=== PATIENT | female | born 1980 | race African-American/Black ===

== ENCOUNTER 2018-04-18 18:20 | Emergency (ER) | payer OTHER ==
[~2018-04-18] VITALS: Ht 170.2 cm; Wt 90.7 kg
[~2018-04-18 18:20] MED LIST: AUGMENTIN 875875 MG PO; CIPROFLOXACIN500 M1 PO; HYDROCODONE-APA1 TA1 PO; NOHOMEMEDICATIONS; NORCO 5-325 TA1 EACH PO; ONDANSETRON HCL4 M2 DISSOLVE; XANAX 0.5 MG0.5 MG PO
[2018-04-18] MEDS ORDERED: MOBIC15 MG PO (19:43)
== END 2018-04-18 20:20 | disposition home or self-care (01) ==
LOC: ER 18:20
DX: S86.912A Strain of unspecified muscle(s) and tendon(s) at lower leg level, left leg, initial encounter (principal); M72.2 Plantar fascial fibromatosis; X58.XXXA Exposure to other specified factors, initial encounter; Y93.89 Activity, other specified; Y92.89 Other specified places as the place of occurrence of the external cause; Y99.8 Other external cause status

== ENCOUNTER 2019-03-01 22:37 | Inpatient (IN) | payer OTHER ==
[~2019-03-01] VITALS: Ht 167.6 cm; Wt 93.0 kg
[~2019-03-01 22:37] MED LIST changes: +MOBIC15 MG PO
[2019-03-01 22:45] VITALS: BP 150/101
[2019-03-01] MEDS ORDERED: NEURONTIN 300300 M1 PO (22:54)
[2019-03-01] MEDS ORDERED: TRAMADOL 50 MG50 MG PO (22:54)
[2019-03-02] VITALS (9 sets, daily range): BP systolic 130–147; BP diastolic 68–91
[2019-03-02 01:42] LABS: ABSOLUTE NEUTROPHILS 4.3 thou/uL (1.4-8.2); BASOPHILS 2.2 % (0.0-2.0); HEMATOCRIT 33.8 % (37.0-47.0); HEMOGLOBIN 10.9 gm/dL (12.0-15.0); LYMPHOCYTES 33.6 % (24.0-44.0); MCH 20.6 pg (26.0-34.0); MCHC 32.1 g/dL (28.0-37.0); MCV 64.1 fL (80.0-100.0); MONOCYTES 11.4 % (1.0-8.0); PLATELET COUNT 404 thou/uL (150-400); POLYS 51.8 % (36.0-66.0); RBC 5.27 mil/uL (4.20-5.00); WBC 8.4 thou/uL (4.0-11.0)
[2019-03-02 01:56] LABS: CALCIUM 9.5 mg/dL (8.5-10.1); CREATININE 0.9 mg/dL (0.6-1.0)
[2019-03-02 02:22] LABS: PROTIME 10.9 Seconds (9.3-11.4)
[2019-03-02 02:22] LABS: ANISOCYTOSIS 2+; HYPOCHROMASIA 3+; MICROCYTES 3+
[2019-03-02] MEDS ORDERED: CELEBREX50 MG PO (03:23)
--- NOTE | 2019-03-02 06:41 | NUR ---
PATIENT IS ALERT AND ORIENTED. PATIENT IS SBA. PATIENT HAS COOLNESS TO LT FOOT. PATIENT IS ON ROOM AIR. PATIENT CO OF PAIN THAT COMES IN WAVES. PAIN IMPROVING. PATIENT CAN NOT PUT FULL WEIGHT ON LT FOOT. PATIENT IS ON HEPARIN DRIP 13.6 ML/HR. PATIENT DOSE NOT TAKE CONTROL, OR SMOKE. PATIENT HAS BEEN DEALING WITH PAIN FOR ABOUT A YEAR. PATIENT IS RESTING COMFORTABLY IN BED. WCM. PATIENT IS PROGRESSING TO GOALS.
--- NOTE | 2019-03-02 12:31 | NUR ---
ASSUMED PATIENT CARE AT 0715. A&OX4. COMPLAINTS OF SEVERE PAIN IN THE LEFT FOOT. FAINT PEDAL PULSE FELT. GREAT TOE IS COOL TO TOUCH. DR. GALO AND BRAYAN CONSULTED. ARTERIOGRAM WITH RUNOFF ORDERED. NPO FOR TEST. FLUIDS INFUSING. PAIN MEDS MAKING PATIENT NAUSEOUS, ZOFRAN GIVEN. HEPARIN GTT ON HOLD PER DR. SCHMIDT. ABLE TO MAKE NEEDS KNOWN. WORKING TOWARD GOALS.
--- NOTE | 2019-03-02 21:10 | NUR ---
SPOKE WITH DOCTOR ABOUT PULSE ABSENCE IN LT FOOT. PROVIDER AWARE NO ORDERS CONTINUE WITH PLAN OF CARE. ERNAM.
[2019-03-03] VITALS (9 sets, daily range): BP systolic 127–153; BP diastolic 68–88
[2019-03-03 05:44] LABS: HEMATOCRIT 29.6 % (37.0-47.0); HEMOGLOBIN 9.7 gm/dL (12.0-15.0); MCH 20.7 pg (26.0-34.0); MCHC 32.9 g/dL (28.0-37.0); WBC 8.4 thou/uL (4.0-11.0)
[2019-03-03 05:45] LABS: PLATELET COUNT 295 thou/uL (150-400)
[2019-03-03 06:00] LABS: ALBUMIN 3.1 g/dL (3.4-5.0); CALCIUM 8.6 mg/dL (8.5-10.1); CREATININE 0.8 mg/dL (0.6-1.0); MAGNESIUM 1.8 mg/dL (1.8-2.4); PHOSPHORUS 3.7 mg/dL (2.5-4.9); POTASSIUM 3.8 mmol/L (3.5-5.1)
[2019-03-03 06:32] LABS: ANISOCYTOSIS 2+; HYPOCHROMASIA 3+; MICROCYTES 3+; PLATELET ESTIMATE NORMAL; TARGET CELLS 1+
--- NOTE | 2019-03-03 07:42 | NUR ---
PATIENT IS ALERT AND ORIENTED. PATIENT HAS INTERMIENT PREFUSSION TO LT FOOT. CIRCULATION IS POSITIONAL. PROVIDER IS AWARE. PATIENTS DRESSING TO GROIN IS CLEAN DRY AND INTACT NO HEMOTOMA. PATIENT IS NSR ON TELE. PATIENT PAIN HAS IMPROVED WITH MEDICATION. PATIENT HAS VOIDED SENSE PROCEDURE. PATIENT IS ROOM AIR. PATIENT ON HEPARIN DRIP PER HEPARIN PROTICOL. PATIENT IS RESTNG COMFORTABLY. PENDING POSSIBLE PROCEDURE TODAY TO REPROFUSE THE FOOT. ERNAM.
--- NOTE | 2019-03-03 13:07 | 2DMMODE ---
[facility] [address] [place] [address] 2 D/M-MODE ECHOCARDIOGRAM Name: BENTONShaguftaRAYNEVANE SANDY Room #: 349-I ADM IN M.R.#: [id number] ������������� Admission: 03/02/19 ������������� Attend Phys: Kiet Belle Discharge: ��� ������������� ��� Date of : 76 Date of Service: 03/03/19 1307 �� Report #: [id number] �������� ��������������������������������������������[id number] THIS REPORT FOR: //name// APPROVED REPORT Study performed: 03/03/2019 11:07:54 EXAM: Comprehensive 2D, Doppler, and color-flow Echocardiogram Patient Location: Bedside Room #: 349 Status: routine BSA: 1.99 HR: 75 bpm BP: 150/87 mmHg Rhythm: NSR Other Information Study Quality: Good Risk Factors: Cardiac Risk Factors: Smoking Indications PAD 2D Dimensions IVSd: 10.18 (7-11mm) LVOT Diam: 19.00 (18-24mm) LVDd: 39.74 mm PWd: 9.76 (7-11mm) Ascending Ao: 28.06 (22-36mm) LVDs: 28.91 (25-40mm) Aortic Root: 27.35 mm LV Single Plane 4CH: 62.25 % LV Single Plane 2CH: 62.65 % Biplane EF: 62.3 % Volumes Left Atrial Volume (Systole) Single Plane 4CH: 28.18 mL Single Plane 2CH: 37.93 mL LA ESV Index: 19.00 mL/m2 Aortic Valve AoV Peak Haresh.: 1.57 m/s AO Peak Gr.: 9.87 mmHg LVOT Max P.40 mmHg LVOT Max V: 1.05 m/s CARMELLA Vmax: 1.91 cm2 [facility] [address] [place] [address] 2 D/M-MODE ECHOCARDIOGRAM Name: AL GUILLEN [facility] Room #: 349-I [facility] IN .R.#: [id number] ������������� Admission: 03/02/19 ������������� Attend Phys: Kiet Belle Discharge: ��� ������������� ��� Date of : 76 Date of Service: 03/03/19 1307 �� Report #: [id number] �������� ��������������������������������������������[id number] Mitral Valve E/A Ratio: 1.2 MV Decel. Time: 179.22 ms MV E Max Haresh.: 1.06 m/s MV A Haresh.: 0.90 m/s MV PHT: 51.97 ms IVRT: 62.28 ms TDI E/Lateral E': 10.60 E/Medial E': 15.14 Medial E' Haresh.: 0.07 m/s Lateral E' Haresh.: 0.10 m/s Pulmonary Valve PV Peak Haresh.: 1.34 m/s PV Peak Gr.: 7.23 mmHg [place] End Vmax: 1.10 m/s Pulmonary Vein P Vein S: 0.57 m/s P Vein A: 0.30 m/s P Vein D: 0.40 m/s P Vein A Dur.: 100.3 msec P Vein S/D Ratio: 1.42 Tricuspid Valve TR Peak Haresh.: 2.47 m/s RAP Estimate: 7.00 mmHg TR Peak Gr.: 24.36 mmHg Left Ventricle The left ventricle is normal size. There is normal LV segmental wall motion. There is normal left ventricular wall thickness. Left ventricular systolic function is normal. The left ventricular ejection fraction is within the normal range. LVEF is 60-65%. The left ventricular diastolic function is normal. Right Ventricle The right ventricle is normal size. The right ventricular systolic function is normal. Atria The left atrium size is normal. The right atrium size is normal. Aortic Valve The aortic valve is normal in structure. No aortic regurgitation is present. There is no aortic valvular stenosis. [facility] [address] [place] [address] 2 D/M-MODE ECHOCARDIOGRAM Name: AL GUILLEN SANDY Room #: 349-I ADM IN [facility]#: [id number] ������������� Admission: 03/02/19 ������������� Attend Phys: Kiet Belle Discharge: ��� ������������� ��� Date of : 76 Date of Service: 03/03/19 1307 �� Report #: [id number] �������� ��������������������������������������������[id number] Mitral Valve The mitral valve is normal in structure. There is no mitral valve regurgitation noted. No evidence of mitral valve stenosis. Tricuspid Valve The tricuspid valve is normal in structure. Trace tricuspid regurgitation. Pulmonary artery pressure is 31 mmHg. Pulmonic Valve The pulmonary valve is normal in structure. There is no pulmonic valvular regurgitation. Great Vessels The aortic root is normal in size. IVC is normal in size and collapses >50% with inspiration. Pericardium There is no pericardial effusion. <Conclusion> The left ventricle is normal size. There is normal left ventricular wall thickness. Left ventricular systolic function is normal. The right ventricle is normal size. The left atrium size is normal. The aortic valve is normal in structure. There is no mitral valve regurgitation noted. Trace tricuspid regurgitation. Pulmonary artery pressure is 31 mmHg. ��������������������������������������������� <ELECTRONICALLY SIGNED> ���������������������������������������� By: Rosendo Murillo MD ��������������������������������������������� 03/03/19 1307 1307 1307 Rosendo Murillo MD /INF
--- NOTE | 2019-03-03 15:32 | NUR ---
patient admits with discoloration of left foot and pain. Patient independent with adls and self care. She works [employer]. She has 3 children 2 in their 20s and 10 year. She reports her 10 year old being attended to by older children and her mother. At dc she plans time off work and may need [facility] paperwork completed for time off work to recoup. SHe is to have fem/tib 03/05. Her pcp is Dr Sahara Booker practices in [place]. Casemgt following for dc planning.
--- NOTE | 2019-03-03 15:54 | NUR ---
ASSUMED PATIENT CARE AT 0715. A&OX4. COMPLAINTS OF LEFT FOOT PAIN. LEFT FOOT COOL. UNABLE TO FEEL PULSE. PATIENT ON HEPARIN GTT. DR. GALO PLANNING ON SURGERY FOR Saturday03/05/19. PATIENT LESS ANXIOUS TODAY. FAMILY AT BEDSIDE MOST OF THE DAY. WORKING TOWARDS GOALS.
--- NOTE | 2019-03-03 16:13 | EKG ---
[address] [address] ELECTROCARDIOGRAM REPORT Name: AL GUILLEN Room #: 349-I ADM IN M.R.#: [id number] ������������������ Admission: 03/02/19 ������������������ Attend Phys: Kiet Lyon Discharge: ������������������ Date of : 76 Report #: [id number] ����������������������������������������������������������������� [id number] THIS REPORT FOR: //name// [facility] Test Date: 2019-03-03 Test Time: 15:46:07 Pat Name: AL GUILLEN Department: Room: 349 Gender: F Pathology Tech: Igor HEATON : 1980 Requested By: Drew Adams Order Number: [id number] MD: Gerry Gomez Measurements Intervals [place] Rate: 81 P: 63 DC: 152 QRS: 28 QRSD: 94 T: 6 QT: 368 QTc: 428 Interpretive Statements Sinus rhythm Compared to ECG 12/21/2015 13:55:24 ST (T wave) deviation no longer present Electronically Signed On 03-03-2019 16:13:27 CDT by Gerry Gomez [email or web address] ��������������������������������������������� <ELECTRONICALLY SIGNED> ���������������������������������������� By: Gerry Gomez MD ��������������������������������������������� 03/03/19 1613 1546 1546 Gerry Gomez MD /NORMAN
[2019-03-03 18:00] LABS: URINE BILIRUBIN NEGATIVE (Negative); URINE BLOOD 2+ (Negative); URINE CLARITY CLEAR; URINE COLOR YELLOW; URINE GLUCOSE-RANDOM* NEGATIVE (Negative); URINE KETONES NEGATIVE (Negative); URINE LEUKOCYTES-REFLEX NEGATIVE (Negative); URINE NITRITE-REFLEX NEGATIVE (Negative); URINE PROTEIN (DIPSTICK) NEGATIVE (Negative); URINE SPECIFIC GRAVITY <= 1.005 (1.005-1.035); URINE UROBILINOGEN 0.2 E.U./dl (0.2-1.0)
[2019-03-03 18:15] LABS: BACTERIA-REFLEX None Seen /HPF (None Seen); CASTS None Seen /LPF (None Seen); CRYSTALS None Seen /LPF (None Seen); SQUAMOUS 0-3 Few /LPF (0-3); URINE RBC 3-10 Few /HPF (0-2); URINE WBC-REFLEX None Seen /HPF (0-5)
[2019-03-04 03:50] VITALS: BP 158/87
--- NOTE | 2019-03-04 07:23 | NUR ---
SLEPT PART OF SHIFT. WORKING ON GOALS AND PLAN OF CARE FOR NOC. PAIN MEDICATION GIVEN ORDERED FOR PAIN RELIEF. LEFT FOOT REMAINS WITH THROBBING PAIN BUT LIDOCAINE CREAM DOSE HELP. PROGRESSING TOWARDS GOALS FOR SURGERY TOMORROW. CONTINUE TO ASSES CLOESLY.
[2019-03-04 08:11] VITALS: BP 146/86
[2019-03-04 11:10] VITALS: BP 152/85
[2019-03-04 15:12] VITALS: BP 143/78
--- NOTE | 2019-03-04 15:48 | NUR ---
SW reviewed chart and spoke with nursing and attending physician. Pt to have fem-tib bypass on . Pt remains on heparin gtt. Discharge plan is for pt to return home when medically stable. SARAH is following to assist as needed with discharge planning.
--- NOTE | 2019-03-04 16:47 | NUR ---
ASSUMED PATIENT CARE AT 0715. A&OX4. COMPLAINTS OF LEFT FOOT PAIN. LEFT FOOT PULSELESS AND COOL. SURGERY PLANNED FOR TOMORROW WITH DR. PARK. HEPARIN GTT INFUSING PER PROTOCOL. STAND BY ASSIST. PATIENT WORKING TOWARDS GOALS. SURGERY CONSENT SIGNED ON THE CHART.
[2019-03-04 19:25] VITALS: BP 144/83
[2019-03-05] VITALS (9 sets, daily range): BP systolic 106–138; BP diastolic 61–79
--- NOTE | 2019-03-05 03:48 | NUR ---
ASSUMED CARE OF PT AT 1900. A&Ox4, COOPERATIVE. Fuentes ESTEFANÍA HAS BEEN COOL AND PALE W/ SEVERAL C/O PAIN AND REQUESTS FOR MEDS, PROVIDED. HAS MILD ANXIETY OF SURGERY TOMARROW. CONCERNED ABOUT MENSES. REASSURED STAFF WOULD ASSIST WITH HER CARE. SR ON TELE. HEPARIN DRIP CONTINUED OVER NOC. NPO STARTED AT MIDNIGHT ORDERED. CURRENTLY RESTING. WILL CONTINUE TO PROVIDE CARE AND MONITOR.
[2019-03-05 05:13] LABS: HEMATOCRIT 29.7 % (37.0-47.0); HEMOGLOBIN 9.7 gm/dL (12.0-15.0); MCHC 32.6 g/dL (28.0-37.0); MCV 64.6 fL (80.0-100.0); RBC 4.61 mil/uL (4.20-5.00); RDW 20.5 % (10.5-14.5); WBC 6.8 thou/uL (4.0-11.0)
--- NOTE | 2019-03-05 16:40 | HC ---
[facility] [address] [place] [address] CONSULTATION Name: AL GUILLEN Room #: 240-P ADM IN M.R.#: [id number] Admission: 03/02/19 ������������������ Attend Phys: Kiet Lyon Discharge: ������������������ Date of : 76 Report #: [id number] THIS REPORT FOR: //name// CC: Sahara Lyon DATE OF SERVICE: 03/02/2019 We were asked to see the patient by the hospitalist. HISTORY OF PRESENT ILLNESS: The patient is a 38-year-old admitted during the night with a cold foot. The patient presents with 1 year prodrome of left ankle discomfort, said to be a sprain, but not ever associated with trauma. The patient states that over the last 2-3 weeks, the pain increased in severity and finally led to Emergency Department admission at 10:00 last night. We note that a noninvasive study showed decreased arterial flow throughout the left lower extremity. PAST MEDICAL HISTORY: The patient denies other chronic disease such as diabetes mellitus and hypertension. FAMILY HISTORY: Negative for coagulopathic problems. MEDICATIONS: At home include Celebrex, Neurontin, and tramadol. ALLERGIES: None known. SOCIAL HISTORY: The patient is a former smoker who quit approximately 1 year ago. REVIEW OF SYSTEMS: CONSTITUTIONAL: Denies fever or chills. EYES: Denies vision problems. ENT: Denies runny nose or sore throat. CARDIAC: Denies chest pain or palpitations. RESPIRATORY: Denies shortness of breath. GASTROINTESTINAL: Denies abdominal pain, nausea, vomiting. GENITOURINARY: Denies dysuria or hematuria. MUSCULOSKELETAL: As mentioned, one-year history of "left ankle sprain" unassociated with trauma. SKIN: No rash or infection. NEUROLOGIC: No focal weakness. The patient does have some numbness in the left foot. PSYCHIATRIC: Denies depression or anxiety. [facility] [address] [place] [address] CONSULTATION Name: AL GUILLEN Room #: 240-P [facility] IN [facility]#: [id number] Admission: 03/02/19 ������������������ Attend Phys: Kiet Lyon Discharge: ������������������ Date of : 76 Report #: [id number] PHYSICAL EXAMINATION: VITAL SIGNS: Blood pressure 131/68, heart rate 68, respiratory rate 20, temperature 98.1, O2 sat 99% on room air. GENERAL: The patient is a mildly obese woman, lying in bed. HEENT: Normocephalic. Pupils are round, equal. NECK: No mass, no bruit. CHEST: Clear. CARDIOVASCULAR: Heart rhythm regular. EXTREMITIES: 2+ right popliteal, dorsalis pedis and posterior tibial pulses. No left popliteal, dorsalis pedis or posterior tibial pulses palpable. Left foot has a ruborous appearance and there is nitro paste taped to the left great toe. SKIN: No other rash or infection. There is capillary refill in both feet and both extremities are warm. PSYCHIATRIC: The patient has limited insight into problem, but answers questions appropriately and is oriented. ASSESSMENT: This appears to be an exacerbation of chronic problem. I suspect that the patient had either undiagnosed embolism last year or chronic stenosis that has gone on to thrombose. From the exam, it is likely to be an iliac lesion. The patient needs imaging study and, in fact, all of this may be able to be taken care of in the Invasive Radiology Suite. Combination of angioplasty, stent placement and/or thrombolytics may be sufficient to deal with this. In any event, I have no surgical recommendations until more anatomic information is available. Thank you for the consult. ��������������������������������������������� <ELECTRONICALLY SIGNED> ���������������������������������������� By: Drew Adams MD ��������������������������������������������� 03/05/19 1640 1623 0533 Drew Adams MD /nt
--- NOTE | 2019-03-05 16:40 | O ---
[facility] [address] [place] [address] OPERATIVE REPORT Name: AL GUILLEN Room #: 240-P ADM IN M.R.#: [id number] Admission: 03/02/19 ������������������ Attend Phys: Kiet Lyon Discharge: ������������������ Date of : 76 Report #: [id number] THIS REPORT FOR: //name// CC: Sahara Lyon DATE OF SERVICE: 03/05/2019 PREOPERATIVE DIAGNOSIS: Arterial occlusive disease, left lower extremity. POSTOPERATIVE DIAGNOSIS: Arterial occlusive disease, left lower extremity. OPERATION: Left femoral to posterior tibial bypass with reversed autogenous greater saphenous vein. Intraoperative arteriogram. SURGEON: Drew Adams M.D. SIGN WRITER LETTERER OR PAINTER: AYDEE Jensen. ANESTHESIA: General. INDICATIONS: The patient is a 38-year-old with a 1-year history of left foot pain, only recently was diagnosed to be arterial occlusive disease. Arteriography by Dr. Paris showed a total occlusion of the common femoral artery with collateral flow from a lateral femoral cutaneous branch. The most obvious distal target on the arteriogram was a left posterior tibial artery that filled by collateral flow. FINDINGS AND TECHNIQUE: After general anesthesia was established, an incision was made over the medial calf. The saphenous vein was exposed at this point, and the incision was deepened to expose the posterior tibial artery. An incision was made in the left groin to expose the common femoral artery. The pulse was palpable at the inguinal ligament. The common femoral below the lateral femoral cutaneous collateral was occluded and felt hard. There was inflammatory change around the distal common femoral artery. The greater saphenous vein was harvested through multiple separate incisions and prepared for use as a conduit. 10,000 units of heparin were given. The reverse saphenous vein was sewn in end-to-side fashion to the patent common femoral artery. Flow was established through this, and we made sure that the artery was hemostatic and there were no twists as we brought it through the subcutaneous tunnel. The reversed end was sewn to the side of the posterior tibial artery. [facility] [address] [place] [address] OPERATIVE REPORT Name: BENTONShaguftaAL [facility] Room #: 240-P [facility] IN M.R.#: [id number] Admission: 03/02/19 ������������������ Attend Phys: Kiet Lyon Discharge: ������������������ Date of : 76 Report #: [id number] Flow was established through the bypass graft. An intraoperative arteriogram was taken to make sure that there were no areas of occlusion or twist and that there was good distal runoff. In addition, we gave papaverine topically on the graft and through the graft. Flow was also ascertained with the Doppler. When we were satisfied with the arteriogram, 25 mg of protamine was given. Hemostasis was ascertained. The wounds were closed in layers with nylon and paris for the distal incisions and Vicryl and Monocryl for the groin. The patient was taken to the recovery area in satisfactory condition with good pulse palpable in the graft. All counts were reported as correct. ��������������������������������������������� <ELECTRONICALLY SIGNED> ���������������������������������������� By: Drew Adams MD ��������������������������������������������� 03/05/19 1640 1555 1608 Drew Adams MD /nt
--- NOTE | 2019-03-05 19:18 | NUR ---
PATIENT IN ICU FROM RECOVERY ROOM THIS EVENING, ALERT AND ORIENTED. MEDICATED FOR PAIN WITH PRN MEDS. DRESSING NOTED ON LLE INCISION WITH 3 SHEA VACS. A-LINE RT RADIAL WITH ADEQUATE WAVEFORM. ON CARDENE GTT FOR HTN CONTROL. PATIENT NAUSEATED AND HAD AN EPISODE OF EMESIS AND SCHEDULED ZOFRAN ADMINISTERED. PULSES DOPPLED ON LEFT DORSALIS PEDIS, UNABLE TO DOPPLER POST. TIBIAL DUE TO SHEA DRESSING. DISCOLORATION OF LEFT BIG TOE NOTED BUT FOOT REMAINS WARM. WILL CONTINUE WITH POC.
[2019-03-06] VITALS (23 sets, daily range): BP systolic 102–125; BP diastolic 54–69
[2019-03-06 04:47] LABS: HEMATOCRIT 21.8 % (37.0-47.0); MCH 21.1 pg (26.0-34.0); MCHC 32.9 g/dL (28.0-37.0); MCV 64.2 fL (80.0-100.0); RBC 3.4 mil/uL (4.20-5.00); RDW 19.9 % (10.5-14.5); WBC 11.6 thou/uL (4.0-11.0)
[2019-03-06 04:52] LABS: HEMOGLOBIN 7.2 gm/dL (12.0-15.0)
[2019-03-06 05:08] LABS: ALBUMIN 2.7 g/dL (3.4-5.0); CALCIUM 8.2 mg/dL (8.5-10.1); CREATININE 0.7 mg/dL (0.6-1.0); PHOSPHORUS 3.1 mg/dL (2.5-4.9); POTASSIUM 3.4 mmol/L (3.5-5.1)
--- NOTE | 2019-03-06 06:17 | NUR ---
ASSUMED PATIENT CARE AT 1900. PATIENT LYING IN BED WITH C/O NAUSEA. PATIENT IS ON CARDENE GTT AND HAS AN ARTERIAL LINE. PATIENT AAOX4 AND VERY PLEASANT. PATIENT C/O PAIN IN THE LLE WHERE A TIB-FEM BYPASS WAS DONE EARLIER IN THE DAY. TIBIAL PULSE PRESENT WITH DOPPLER BUT PEDAL PULSE IS ABSENT. PATIENT PROGRESSING TOWARDS GOAL.
--- NOTE | 2019-03-06 07:30 | NUR ---
Dr Adams and katie Woodson PA at the bedside with the patient. Speaking to her about the plan of care: Discontinuing the [place]. Requesting pt/ot to get her out of the bed to the chair. Giving her some Iron Iv instead of a transfusion. taking care of her pain. Encouraging her to eat her meals. o8oo Annika dc pressure held for 10mins, able to move her fingers and hand is warm, no hematoma noted. will cont to monitorand work toward the POC.
[2019-03-06 10:00] LABS: HEMOGLOBIN 7.5 gm/dL (12.0-15.0)
[2019-03-06 10:11] LABS: % SATURATION 7 % (20-39); IRON 20 ug/dL (50-170); TIBC 304 ug/dL (250-450)
--- NOTE | 2019-03-06 12:12 | EKG ---
[address] [place] [address] ELECTROCARDIOGRAM REPORT Name: AL GUILLEN Room #: 240-P ADM IN M.R.#: [id number] ������������������ Admission: 03/02/19 ������������������ Attend Phys: Kiet Lyon Discharge: ������������������ Date of : 78 Report #: [id number] ����������������������������������������������������������������� [id number] THIS REPORT FOR: //name// [facility] Test Date: 2019-03-05 Test Time: 19:30:21 Pat Name: AL GUILLEN Department: Room: 240 P Gender: F Bakery Clerk: Igor HEATON : 1980 Requested By: Kiet Lyon Order Number: [id number] MD: Nitish Hernández Measurements Intervals [place] Rate: 126 P: 54 [place]: 127 QRS: 37 QRSD: 72 T: 14 QT: 314 QTc: 455 Interpretive Statements Sinus tachycardia Nonspecific T wave abnormality Compared to ECG 03/03/2019 15:46:07 Heart rate has increased T wave abnormality is now present Electronically Signed On 03-06-2019 12:11:45 CDT by Nitish Hernández [email or web address] ��������������������������������������������� <ELECTRONICALLY SIGNED> ���������������������������������������� By: Nitish Hernández MD, [facility] ��������������������������������������������� 03/06/19 1211 29 29 Nitish Hernández MD, [facility] /EPI
--- NOTE | 2019-03-06 20:30 | NUR ---
SHIFT SUMMARY: L FOOT PAIN CONTROLLED WITH HYDROCODONE AND/OR DILAUDID IV. SR/ST, L MEDIAL KNEE AND POSTERIOR TIB PULSES PRESENT PER DOPPLER, L GREAT TOE PALENESS RESOLVING HOWEVER TOE REMAINS MOTTLED. ALL SHEA DRAINS INTACT TO L GROIN/L LEG AND L LEG DRESSING DRY/INTACT WITH SCANT OLD BLOOD. ROOM AIR, LUNGS CLEAR, ZOFRAN GIVEN TO PREVENT NAUSEA/EMESIS, TOLERATING MEALS. PT HAD SIGNIFICANT PAIN IN L GROIN AND L FOOT DESPITE HYDROCODONE & DILAUDID GIVEN SHORTLY BEFORE STANDING AT BEDSIDE. WITH PHYSICAL THERAPY ASSISTANCE PT WAS ONLY ABLE TO STAND AT BEDSIDE AND UNABLE TO WALK. JOEL REMAINED IN PLACE SINCE PT UNABLE TO TOLERATE AMBULATING TO BATHROOM. PARTS DATA WRITER AND DR. GALO AWARE THAT JOEL STILL IN PLACE. PT REQUESTED WARM BLANKET, THEN LATER STATES SHE WAS CHILLY AGAIN. NOTED TEMP 101.3, PT STARTED TAKING DEEP BREATHS X10/THEN COUGH. PERFORMING EVERY FEW MINUTES. TAKING DEEPER BREATHS AND COUGH IMPROVING. CALL PLACED TO DR. GALO- SEE ORDER FOR ANTIBIOTICS. PT GENERALLY PROGRESSING BASED ON PULSES. NOT PROGRESSING RELATED TO L GROIN/L FOOT PAIN ASSOCIATED WITH LACK OF MOBILITY, FEVER AND JOEL STILL IN PLACE.
[2019-03-07] VITALS (13 sets, daily range): BP systolic 104–142; BP diastolic 56–73
[2019-03-07 04:53] LABS: HEMATOCRIT 20.3 % (37.0-47.0); HEMOGLOBIN 6.8 gm/dL (12.0-15.0)
--- NOTE | 2019-03-07 06:23 | NUR ---
No changes observed through the night. VS stable and SpO2 adequate on RA. PRN dilaudid and hydrocodones given for c/o left foot pain with desired effects achieved. Large amount of urine output for shift and no BM observed. Am lab results noted, continue with POC.
--- NOTE | 2019-03-07 14:25 | NUR ---
TRANSFERRED TO CCU #[id number] PER WHEELCHAIR WITH RN ASSIST.
--- NOTE | 2019-03-07 17:01 | NUR ---
PT TRANSFERED TO THE UNIT FROM THE ICU - ORIENTED TO ROOM AND BEDSPACE - ASSESSMENT CHARTED - GIVEN HYDROCODONE FOR PAIN WITH MIN RELIEF PATIENT STATES. JOVANA DIET AND FLUIDS. HAS NOT VOIDED SINCE JOEL REMOVAL - DRESSING REMAIN C/D/I. WILL CONTINUE TO MONITOR.
[2019-03-08 04:00] VITALS: BP 137/85
[2019-03-08 05:01] LABS: HEMATOCRIT 21.3 % (37.0-47.0); HEMOGLOBIN 6.8 gm/dL (12.0-15.0); MCH 20.8 pg (26.0-34.0); MCHC 31.9 g/dL (28.0-37.0); MCV 65.3 fL (80.0-100.0); RBC 3.27 mil/uL (4.20-5.00); RDW 19.7 % (10.5-14.5); WBC 11.4 thou/uL (4.0-11.0)
[2019-03-08 05:30] LABS: CHOLESTEROL 120 mg/dL (<200); HDL CHOLESTEROL 36 mg/dL (>40); LDL CHOLESTEROL 70 mg/dL (<100); TC:HDL 3.3 Ratio (Not establshd); TRIGLYCERIDE 71 mg/dL (<150); VLDL 14 mg/dL (<40)
[2019-03-08 05:36] LABS: SERUM ASSESSMENT N
--- NOTE | 2019-03-08 07:55 | NUR ---
ASSUMED PT CARE AT 1900 WITH NO SIGN OF DISTRESS NOTED, PT IS ALERT AND ORIENTED, FAMOLY AT BEDSIDE. ASSESSMENT COMPLETED AND CHARTED. SCHEDULED MEDS ADMINISTERED TO PT. PAIN MEDS ADMINISTERED TO PT. PT IS STABLE. WOUND DRESSING IN PLACE. NO FURTHER NEEDS AT THIS TIME.
[2019-03-08 08:00] VITALS: BP 126/75
[2019-03-08 08:32] LABS: CALCIUM 8.8 mg/dL (8.5-10.1); CREATININE 0.8 mg/dL (0.6-1.0); MAGNESIUM 1.8 mg/dL (1.8-2.4); POTASSIUM 3.3 mmol/L (3.5-5.1)
[2019-03-08 12:00] VITALS: BP 130/84
--- NOTE | 2019-03-08 12:35 | NUR ---
ASSUMED CARE OF PT AT APPROX 0700. PT IS ALERT AND ORIENTED. MONITORED ON TELE AND ABLE TO MAINTAIN 02 SAT >90 ON RA. PT IS IN TEARS STATING THAT PAIN IN LEFT FOOT IS UNCONTROLLED. TALKED WITH PATIENT ABOUT A GOOD PAIN MANAGEMENT FOR THE DAY AND ADMINISTERED PAIN MEDICATION. PT STATES PARTIAL RELIEF. WILL COTINUE TO TREAT PAIN. PULSES ALL POSITIVE ON LEFT LEG WITH AND WITHOUT DOPPLER. ASSESSMENT CHARTED. PT UPDATED ON POC AND DENIES AND QUESTIONS OR CONCERNS AT THIS TIME. WILL CONTINUE TO MONITOR.
[2019-03-08 15:25] VITALS: BP 131/77
[2019-03-08 19:55] VITALS: BP 133/70
[2019-03-08 23:35] VITALS: BP 118/71
--- NOTE | 2019-03-09 03:34 | NUR ---
ASSUMED CARE 1899. VSS. ASSESSMENT CHARTED. PT C/O LE AND L FOOT PAIN CONTROLED WITH ROTATING PRN PAIN MEDS PER EMAR. PT DENIES SOA, CP, N/V, DIZZINESS OR ANY OTHER CONCERNS. X1 W/WALKER TO COMMOD- ST 110-140 WHEN UP. PT REFUSED INSULIN. PT HBG LOW, STATES SHE DOES NOT WANT A BLOOD TRANSFUSION IS OKAY WITH IRON INFUSION SHE GOT EARLIER IN THE DAY. LE X3 SHEA PUMPS AND DRESSING INTACT WORKING PROPERLY. LEFT PEDAL AND POST TIB PULSE FELT +1. PT REQUESTED HEEL FLOATED WITH PILLOW, MOVES SELF IN BED. PLAN FOR LABS THIS AM. WILL CONTINUE TO MONITOR AND WITH POC.
[2019-03-09 05:11] LABS: HEMATOCRIT 22.1 % (37.0-47.0); HEMOGLOBIN 7.3 gm/dL (12.0-15.0); MCH 21.6 pg (26.0-34.0); MCV 65.5 fL (80.0-100.0); RBC 3.38 mil/uL (4.20-5.00); RDW 19.5 % (10.5-14.5); WBC 9.6 thou/uL (4.0-11.0)
[2019-03-09 05:23] LABS: CALCIUM 8.7 mg/dL (8.5-10.1); CREATININE 0.6 mg/dL (0.6-1.0); MAGNESIUM 1.9 mg/dL (1.8-2.4); POTASSIUM 4.3 mmol/L (3.5-5.1)
[2019-03-09 05:34] VITALS: BP 107/62
[2019-03-09 08:07] VITALS: BP 124/74
[2019-03-09 11:34] LABS: URINE BILIRUBIN NEGATIVE (Negative); URINE BLOOD 3+ (Negative); URINE CLARITY SL CLOUDY; URINE GLUCOSE-RANDOM* NEGATIVE (Negative); URINE KETONES NEGATIVE (Negative); URINE LEUKOCYTES-REFLEX NEGATIVE (Negative); URINE NITRITE-REFLEX NEGATIVE (Negative); URINE PROTEIN (DIPSTICK) NEGATIVE (Negative); URINE UROBILINOGEN 0.2 E.U./dl (0.2-1.0)
[2019-03-09 11:35] LABS: URINE COLOR PINK
--- NOTE | 2019-03-09 11:37 | NUR ---
Nutrition: Pt s/p left femoral to posterior artery bypass. Seen for LOS. Pt very upset at time of assessment, no information obtained. Wt mostly stable x1 week. Pt reported wt upon admission 200 lbs, current 204 lbs. Will remain available for further concerns. Otherwise will assign as low nutrition risk.
[2019-03-09 11:47] LABS: BACTERIA-REFLEX 1-9 Few /HPF (None Seen); CASTS None Seen /LPF (None Seen); CRYSTALS None Seen /LPF (None Seen); SQUAMOUS 0-3 Few /LPF (0-3); URINE RBC >20 Many /HPF (0-2); URINE WBC-REFLEX 0-5 Rare /HPF (0-5)
[2019-03-09 11:50] VITALS: BP 125/73
--- NOTE | 2019-03-09 15:05 | NUR ---
SPOKE WITH PATIENT REGARDING POST ACUTE REHAB. OFFERED OPTIONS INCLUDING 5N [facility] OPTION. PATIENT PREFERS 5N FOR CONTINUITY OF CARE. 5N EVALED AND IN PROCESS OF AUTH. UPDATED PATIENT.
--- NOTE | 2019-03-09 18:40 | NUR ---
VSS REMAINS NSR TO ST 90-110 BASELINE, WITH ANY ACTIVITY TO BSC HR GOES UP TO 140-160. AWARE.L LEG PAIN CONTROL WITH IV DILAUDID AND HYDROCODONE ALTERNATING EVERY 2 HOURS. NEW PAIN MANAGEMENT EXPLAINED TO PT WITH PO PERCOSET. LEFT LEG WITH DOPPLED PULSE. UP TO BSC WITH ASSIST AND TOLERATED WELL. WILL CONTINUE TO MONITER AND CARE FOR PT PER PLAN OF CARE
[2019-03-09 21:03] VITALS: BP 127/69
[2019-03-10 00:05] VITALS: BP 116/58
[2019-03-10 06:00] VITALS: BP 108/62
[2019-03-10 07:45] VITALS: BP 133/77
--- NOTE | 2019-03-10 08:21 | NUR ---
ASSESSMENTS CHARTED. LEFT FOOT CONTINUED TO PAIN THE PATIENT. TRIED AN ICE BAG FOR 10 MINUTES, ELEVATED THE LEG ON PILLOWS. WHICH HELPED THE MOST WITH PAIN BESIDES MEDS. 1ST TOE IS PURPLE AT THE TIP. UP TO BSC USING WALKER AND PARTIAL WEIGHT BEARING. SHEA DRESSINGS ON 3 SITES ON LEFT LEG. DRAINAGE ON BANDAGES UNCHANGED DURING SHIFT. PLAN IS TO CHANGE DRESSINGS, TAKE A SHOWER AND POSSIBLY MOVE TO REHAB UNIT.
[2019-03-10 11:28] VITALS: BP 123/69
[2019-03-10] MEDS ORDERED: FERREX 150 PLU1 EAC1 PO (12:00)
[2019-03-10] MEDS ORDERED: CLOPIDOGREL75 MG PO (12:00)
[2019-03-10] MEDS ORDERED: ATORVASTATIN CA40 MG PO (12:00)
[2019-03-10] MEDS ORDERED: PERCOCET 10-321 EACH PO (12:00)
[2019-03-10] MEDS ORDERED: ASPIR 8181 MG PO (12:00)
[2019-03-10] MEDS ORDERED: LMX TOP (12:00)
[2019-03-10] MEDS ORDERED: CARDIZEM CD120 MG PO (12:00)
[2019-03-10] MEDS ORDERED: ACETAMINOPHEN325 M1 PO (12:00)
[2019-03-10] MEDS ORDERED: MIRALAX17 GM PO (12:00)
== END 2019-03-10 15:10 | DRG 252 ==
LOC: ER 22:37 → EROBS 03-02 01:28 → 3W 03-02 01:28 → ER 03-02 01:28 → 3W 03-02 03:10 → EROBS 03-02 03:10 → 3W 03-02 03:10 → ICU 03-05 11:49 → 2N 03-07 15:30 → ICU 03-07 15:30 → 2N 03-10 10:34 → ICU 03-10 10:34 → 3W 03-10 10:34 → 2N 03-10 12:47
PROVIDERS: Internal Medicine; Nurse Practitioner; Physician Assistant; Student in an Organized Health Care Education/Training Program; Surgery Vascular Surgery; ADMIT Hospitalist
PROC: 06BQ0ZZ Excision of Left Saphenous Vein, Open Approach (ICD-10-PCS; principal; 2019-03-10)
PROC: 041L09N Bypass Left Femoral Artery to Posterior Tibial Artery with Autologous Venous Tissue, Open Approach (ICD-10-PCS; principal; 2019-03-10)
PROC: B41G1ZZ Fluoroscopy of Left Lower Extremity Arteries using Low Osmolar Contrast (ICD-10-PCS; principal; 2019-03-10)
DX: I73.9 Peripheral vascular disease, unspecified (principal); E43 Unspecified severe protein-calorie malnutrition; D62 Acute posthemorrhagic anemia; I77.9 Disorder of arteries and arterioles, unspecified; N93.9 Abnormal uterine and vaginal bleeding, unspecified; E87.6 Hypokalemia; R26.9 Unspecified abnormalities of gait and mobility; Z79.899 Other long term (current) drug therapy; Z87.891 Personal history of nicotine dependence
CPT/HCPCS: 10078; 10081; 10879; 47375; 48888; 50010; 50101; 50386; 50455; 51412; 51481; 51751; 54118; 56524; 56526; 56527; 56528; 56531; 56668; 56682; 56760; 56898; 57092; 57093; 57115; 62110; 62900; 65020; 65040; 70005

== ENCOUNTER 2019-03-10 10:40 | Inpatient (IN) | payer OTHER ==
[~2019-03-10] VITALS: Ht 167.6 cm; Wt 94.3 kg
--- NOTE | ~2019-03-10 | H ---
[facility] Dejon [place] [address] HISTORY AND PHYSICAL Name: AL GUILLEN Room #: PRE IN ..#: [id number] Admission: ������������������ Attend Phys: Odell Mead MD Discharge: ������������������ Date of : 78 Report #: [id number] THIS REPORT FOR: //name// CC: Sahara Mead DATE OF SERVICE: 03/10/2019 HISTORY OF PRESENT ILLNESS: This is a 38-year-old female who presented to the hospital with severe left lower extremity pain and difficulty ambulating for the past 2-3 weeks. She initially had left ankle pain approximately one year ago and was treated by multiple physicians for a left ankle sprain. She even underwent outpatient physical therapy. This admission, she was found to have severe arterial occlusive disease. She was evaluated by Cardiothoracic Surgery and Interventional Radiology. She underwent a left femoral to posterior tibial bypass with reversed autogenous greater saphenous vein and intraoperative arteriogram on 03/05/[address] Adams. Postoperatively, she has had some acute blood loss anemia. She refused blood transfusions, but did agree to iron transfusions for which she has completed a total of 5 bags worth. She has struggled with postop pain control. Medications have been adjusted by primary care. She is on Plavix for further prevention. She has SHEA drain x 3 to the left leg and dressings in place, original surgical dressing still. Today, the patient denies dizziness or headache. She denies numbness or tingling. She denies cough, shortness of air, chest pain. She denies nausea or abdominal pain. She does have some constipation. She denies dysuria. She has left groin down to the foot pain each day, has some slow improvement. She reports some instability of her right ankle. PAST SURGICAL HISTORY: Neck surgery, wisdom teeth removed. SOCIAL HISTORY: The patient is single. She lives in an apartment with her 22-year-old son. She has three other children. She has zero stairs to enter the building or inside the building. She utilized no assistive device prior. 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 She denies any fall in the past. She was independent with ADLs and IADLs. She drives. She is right hand dominant. HABITS: She is a nonsmoker, nondrinker, no illicit drug use. ALLERGIES: No known drug allergies. CURRENT MEDICATIONS: Iron 150 mg daily, Percocet one to two tablets q.6h. p.r.n., Plavix 75 mg daily, MiraLax 17 grams daily, Lipitor 40 mg at bedtime, aspirin 81 mg daily, NovoLog sliding scale a.c. and at bedtime, Zofran 4 mg p.r.n., Tylenol 650 q.6h. p.r.n., Pepcid 20 mg twice a day, Norvasc 5 mg twice a day. [facility] [address] [place] [address] HISTORY AND PHYSICAL Name: AL GUILLEN Room #: PRE IN [facility].#: [id number] Admission: ������������������ Attend Phys: Odell Mead MD Discharge: ������������������ Date of : 78 Report #: [id number] ALLERGIES: No known drug allergies. REVIEW OF SYSTEMS: Remainder of her 14-point review of systems is negative except as listed in HPI. PHYSICAL EXAMINATION: VITAL SIGNS: Blood pressure 123/69, pulse of 101, temperature 98.8, O2 sat 99% on room air. GENERAL: She is awake, alert. She is oriented x 4. She is on room air. She is in no acute distress. HEAD: Normocephalic. EYES: EOMs are intact with no icterus. ENT: No sinus tenderness, no pharyngitis, no rhinorrhea. NECK: No lymphadenopathy. GENERAL: She has regular rate and rhythm. S1, S2 intact. CHEST: Lungs are clear to auscultation bilaterally with no crackle, no wheeze. ABDOMEN: Bowel sounds are positive. She is soft, nontender, nondistended. GENITOURINARY: No CVA tenderness. NEUROLOGIC: Cranial nerves 2-12 grossly intact. Sensation appears intact bilaterally. EXTREMITIES: She has functional range of motion of her bilateral upper extremities, equal manager night strengths bilaterally with no clonus. Upper extremity strength is grossly 4-/5. Lower extremities, she has several dressings starting on the left groin down towards the left ankle. She has a SHEA drain x [address] She has quarter-sized discoloration to her left great toe. She has palpable pedal pulse on the left and right. Left foot is warm. She is able to lift her lower extremity and to gravity bilaterally, right lower extremity with no edema and negative Homans sign. Functional range of motion of the right lower extremity, range of motion limited on the left due to pain. Min to mod assist for sit to stand, dependent for lower body dressing, bathing is min assist. She has not been ambulating due to pain in the left lower extremity and she is limiting her weightbearing due to the pain. SKIN: Otherwise warm, dry and intact. PSYCHIATRIC: Pleasant affect. LABORATORY DATA: From 03/09/2019, WBC is 9.6, hemoglobin 7.3, MCV 65.5, platelets 383. Sodium 141, potassium 4.3, BUN 5, creatinine 0.6, magnesium 1.9. ASSESSMENT: 1. Left lower extremity severe peripheral arterial disease, status post femoral to posterior tibial bypass 03/05/2019, weightbearing as tolerated. 2. Acute blood loss anemia and iron deficiency anemia. 3. Gait instability. 4. Electrolyte abnormalities, resolved. 5. Hypertension. [facility] [address] [place] [address] HISTORY AND PHYSICAL Name: AL GUILLEN Room #: PRE IN M.R.#: [id number] Admission: ������������������ Attend Phys: Odell Mead MD Discharge: ������������������ Date of : 78 Report #: [id number] 6. Hyperlipidemia. 7. Elevated glucose. PLAN: The patient will be admitted to [address] [place] [address] for physical and occupational therapies with the goal to return back to her home as independent as possible. Hospitalist will be consulted to follow for any acute medical issues along with Dr. Adams for surgical and wound care concerns. She will have a neuropsychology testing done while on the unit. She will have a care team meeting next Saturday for discharge planning needs. Social Work Services will be following along as well. She is on aspirin and Plavix for DVT prophylaxis. She is on Pepcid for GI prophylaxis. I will add a stool regimen. We will work on pain control and encouraging mobilization. Also, repeat CBC, BMP in the morning and I will add a hemoglobin A1c for her elevated glucose. Please see extensive orders. ��������������������������������������������� ���������������������������������������� By: ��������������������������������������������� [id number] MARTI Waller /nt
[~2019-03-10 10:40] MED LIST changes: +CELEBREX50 MG PO; +NEURONTIN 300300 M1 PO; +TRAMADOL 50 MG50 MG PO
[2019-03-10] MEDS ORDERED: CARDIZEM CD120 MG PO (12:00)
[2019-03-10] MEDS ORDERED: MIRALAX17 GM PO (12:00)
[2019-03-10] MEDS ORDERED: ACETAMINOPHEN325 M1 PO (12:00)
[2019-03-10] MEDS ORDERED: CLOPIDOGREL75 MG PO (12:00)
[2019-03-10] MEDS ORDERED: ATORVASTATIN CA40 MG PO (12:00)
[2019-03-10] MEDS ORDERED: ASPIR 8181 MG PO (12:00)
[2019-03-10] MEDS ORDERED: FERREX 150 PLU1 EAC1 PO (12:00)
[2019-03-10] MEDS ORDERED: LMX TOP (12:00)
[2019-03-10] MEDS ORDERED: PERCOCET 10-321 EACH PO ×2 (12:00)
--- NOTE | 2019-03-10 15:18 | NUR ---
ASSESSMENT CHARTED - MEDS PER DEC - NO CO'S OF NAUSEA. JOAVNA DIET AND FLUIDS - GIVEN PERCOCET X 2 FOR PAIN WITH MOD RELIEF - UP TO THE CHAIR / BSC - SHOWERED THIS AM BY OCC THERAPY - SHEA DRESSING REMOVED AND THEN REAPPLIED BY PA. PT TRANSFERED WITH [facility] TO REHAB THIS AFTERNOON. LEFT UNIT VIA WHEELCHAIR - NO CO'S AT TIME OF D/C.
[2019-03-10 15:30] VITALS: BP 126/72
--- NOTE | 2019-03-10 18:04 | NUR ---
PT ADMITED TO ROOM 511 FOR LEFT SEVERE PAD, S/P FEMORAL TO TIBIAL BYPASS ON 03/05/19. SECONDARY TO ACUTE BLOOD LOSS/ IRON DEFFIENCY ANEMIA. HGB TODAY IS 7.3. CONTINUE TO BE ON IRON SUPPLEMENT. PT HAD SHOWER AT CCU AND NEW SHEA DRESSINGS ON 3 SITES ON LEFT LEG BEFORE ADMITTED TO REHAB. C/O PAIN 8/10 ON LEFT FOOT. ADMISSION MEDS FAXED TO PHARMACY AND WENT OVER MEDS WITH PT. PERCOCET 2 TABLETS GIVEN BUT LITTLE REFLIEF AFTER 30M, VSS ON RA. TEMP 99.0 C/O COLD ROOM. TEMP AJUSTED. WILL CONTINUE TO MONITOR PAIN AND ANXIETY. ADMISSION REASSESSMENT PER CHART. LAST BM WAS COUPLE DAYS AGO. BS PRESENT BUT HYPOACTIVE. COLACE PRN GIVEN. OFFERED SUPPORTIVE CARE. ENCORUAGED PT TO VOICE HER NEEDS. DISCUSSED ABOUT REHAB SCHEDULED AND ENCOURAGED PT TO REST WELL AT NIGHT. PT SOUNDS RESTLESS WITH PAIN IS NOT UNDERCONTROL. SUGGESTED PT TO TRY TO TAKE ANXIETY MED TO HELP HER REST TONIGHT. CALLED AND NOTIFIED [facility] OBTAINED PRN XANAX FOR ANXIETY AND SLEEP. CONSULT PHYSICIANS CALLED AND NOTIFIED. ENCOURAGED PT TO USE SCD ON RIGHT LEG AND TURN WHILE SHE IS IN BED. WILL GIVE REPORT TO NIGHT NURSE TO CONTINUE TO MONITOR. MOTHER AND CHILDREN AT BEDSIDE. PT SIGNED CONTRACT FOR SAFETY AND ADMISSION CONSENTS. WILL CONTINUE TO MONITOR.
[2019-03-10 19:53] VITALS: BP 117/63
--- NOTE | 2019-03-11 05:02 | NUR ---
Pt. stated she slept well during the night. Medicated for pain x1 this shift with good relief. Left leg incisions x3 with SHEA dressing intact. Up with assist x1 and use of walker to commode. Bed alarm on , calls appropriately. Denies any other concern.
[2019-03-11 06:05] LABS: HEMOGLOBIN 7.8 gm/dL (12.0-15.0); MCH 21.9 pg (26.0-34.0); MCHC 32.5 g/dL (28.0-37.0); MCV 67.6 fL (80.0-100.0); RBC 3.56 mil/uL (4.20-5.00); RDW 20.4 % (10.5-14.5); WBC 10.8 thou/uL (4.0-11.0)
[2019-03-11 06:11] LABS: CALCIUM 9.1 mg/dL (8.5-10.1); CREATININE 0.8 mg/dL (0.6-1.0); POTASSIUM 4.1 mmol/L (3.5-5.1)
[2019-03-11 11:11] LABS: GLYCOHEMOGLOBIN (HGB A1C) 5.1 % (4.8-5.6)
--- NOTE | 2019-03-11 12:23 | NUR ---
chart review. cm visited with pt at bedside, a & o x 3 and able to make her needs know. intro to cm, team meetings and transition of care. she reported " completely independent prior to this, no rehab before"/pt. noted in chart " lives with children ages 10-20 years old. has support from mom and older kids help with younger child. no dme, no hh or rehab in past. 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 will cont following as needed for dc needs.
--- NOTE | 2019-03-11 14:49 | NUR ---
Patient participated in community reintegration on 03/11/19 with Physical Therapy. Refer to documentation by PT.
--- NOTE | 2019-03-11 19:38 | NUR ---
ASSUMED CARE OF PATIENT AT 0715. PATIENT IS A&OX4 AND VITAL SIGNS ARE STABLE. PATEINT HAS REPORTED PAIN THROUGHOUT SHIFT AND HAS BEEN TREATED FOR PAIN WITH MEDICAITONS PER ORDERS. PATIENT PARTICIPATED IN SCHEDULED THERAPIES. SHEA DRESSINS X3 IN PLACE ARE CLEAN, DRY, AND INTACT TO THE LLE. PATIENT TRANSFERS WITH 1 PERSON ASSIST USING GAITBELT AND WALKER. PATIENT TAKES MEDICAITONS WHOLE WITH THIN LIQUIDS. FALL PRECAUTIONS IN PLACE AND NURSING WILL CONTINUE TO MONITOR PATIENT.
[2019-03-11 21:28] VITALS: BP 126/78
--- NOTE | 2019-03-11 23:47 | NUR ---
PT ASSESSMENT COMPLETED AND VSS. MEDS GIVEN ORDERED AND WELL TOLERATED. PRN PAIN MEDICATION HELPFUL FOR L LEG PAIN. SHEA DSGS DRY AND INTACT. SUPPORTIVE SON AT BEDSIDE. PT DENIES NEEDS. RESTING WELL. WILL CONTINUE TO MONITOR FREQUENTLY.
--- NOTE | 2019-03-12 18:28 | NUR ---
ASSUMED CARE OF PATIENT AT 0715. PATIENT IS A&OX4 AND VITAL SIGNS ARE STABLE. PATEINT TRANSFERS AND AMBULATES WTIH 1 PERSON ASSISTANCE USING GAIT BELT AND WALKER. PATIENT TAKES MEDICATIONS WHOLE WITH THIN LIQUIDS. ORDERS OBTAINED BY MANISHA TO REMOVE SHEA DRESSINGS AND PLACE [place] DRESSINGS TO LLE. SURGICAL SITES ARE WELL APPROXIMATED AND STAPELES AND SUTURES ARE IN PLACE. PAIN AND ANXIETY TREATED WITH MEDICAITONS PER ORDERS. PERIPHERAL PULSES IN LOWER EXTREMITIES ARE +1 IN LLE AND +2 IN RLE. PATIENT PARTICIPATED IN SCHEDULED THERAPIES. FALL PRECAUTIONS IN PLACE AND NURSING WILL CONTINUE TO MONITOR.
[2019-03-12 19:15] VITALS: BP 110/61
--- NOTE | 2019-03-12 21:49 | NUR ---
PT ASSESSMENT COMPLETED AND VSS. MEDS GIVEN ORDERED AND WELL TOLERATED. FALL PRECAUTIONS IN PLACE. UP TO THE BATHROOM WITH ASST/GAIT/WALKER. WEAK. PRN PAIN MEDICATION WORKING WELL FOR SURGICAL PAIN. DSGS ON LEFT LEG DRY AND INTACT. PT SLEEPING WELL. WILL CONTINUE TO MONITOR FREQUENTLY.
[2019-03-13 08:11] VITALS: BP 99/66
[2019-03-13 19:35] VITALS: BP 109/56
--- NOTE | 2019-03-13 20:20 | NUR ---
ASSUMED CARE OF PATIENT AT 0715. PATIENT IS A&OX4, VITAL SIGNS ARE STABLE. PATIENT TRANSFERS AND AMBULATES WITH 1 PERSON MINIMUM TO STANDBY ASSISTANCE WITH GAIT BELT AND WALKER. PATIENT REPORTED PAIN AND ANXIETY DURING SHIFT AND WAS TREATED WITH MEDICATIONS PER ORDERS. PARTICIPATED IN SCHEDULED THERAPIES. DRESSINGS TO THE LLE CHANGED THIS SHIFT. SURGICAL SITE IS WELL APPROXIMATED WITH SUTURES AND REDD IN PLACE. DRAINAGE NOTED DURING SHIFT ON THE DRESSINGS TO THE THIGH AND REQUIRED A SECOND DRESSING CHANGE. PATIENT TAKES MEDICAITONS WHOLE WITH THIN LIQUIDS. FALL PRECAUTIONS ARE IN PLACE AND NURSING WILL CONTINUE TO MONITOR PATIENT.
--- NOTE | 2019-03-14 03:28 | NUR ---
APPRECIATES PAIN MEDS AT HS AND HAS BEEN RESTING WELL WITH LEGS ELEVATED. LEFT LEG IS WARM AND HAS PULSES. MULTIPLE DRESSINGS REMAIN DRY. TOE IS MARKED IN ORDER TO BETTER MEASURE ITS PROGRESS HEALING. PLEASANT
[2019-03-14 08:04] VITALS: BP 110/64
[2019-03-14 19:49] VITALS: BP 115/68
--- NOTE | 2019-03-14 20:12 | NUR ---
ASSUMED CARE AT APROX 0715. PATIENT A/O X4. C/O PAIN IN LLE. PAIN MEDS ADMINISTERED PER ORDERS. DRESSINGS CHANGED, REDD INTACT, SUTURES INTACT, INCISIONS WELL APPROXIMATED. SANGUINOUS DRAINAGE NOTED, DRESSING CHANGED X2 THIS SHIFT TO LEFT MID THIGH. PATIENT RUNNING LOW GRADE TEMP OF 99.0, PROVIDER NOTIFIED, PATIENT GIVEN PAIN MED CONTAINING ACETAMINOPHEN, TEMP ON RE-CHECK WAS 98.3. UP X1 PERSON ASSIST, GB AND WALKER, WALKING TO TOILET. PATIENT MENSTRUATING. PATIENT PARTICIPATED IN ALL THERAPY THIS DATE. PAIN MEDS AND ANTI-ANXIETY MEDICATION PROVIDED PRIOR TO DINNER PER PATIENT REQUEST. PATIENT REPORTED PARITAL RELIEF OF PAIN. FALL PRECAUTIONS IN PLACE. RESTING IN BED AT CHANGE OF SHIFT.
--- NOTE | 2019-03-15 04:23 | NUR ---
PATIENT ALERT AND ORIENTED X4. UP WITH ONE ASSIST TO BATHROOM. TEMP 99.4 AT SHIFT CHANGE, GIVEN TYLENOL AND MEDICATED FOR PAIN. RECHECKED TEMP WAS 99.7. PATIENT ENCOURAGED TO DEEP BREATHE AND DRINK FLUIDS IT WAS TOO EARLY FOR MORE MEDICATION. TEMP CHECKED AT 0105 AND WAS 98.2 - PATIENT STATES SHE FEELS BETTER. DRESSING TO UPPER LEFT THIGH CHANGED DUE TO SATURATION. PLACED THICKER DRESSING AND MONITORING. ALSO GIVEN MUSCLE RELAXER PER REQUEST. PLEASANT AND COOPERATIVE WITH CARE. WILL MONITOR.
[2019-03-15 08:00] VITALS: BP 108/66
--- NOTE | 2019-03-15 19:42 | NUR ---
ASSUMED CARE OF PT AT APPROXIMATELY 0715. PATIENT IS A&OX4 AND VITAL SIGNS ARE STABLE. PT TRANSFERS WITH 1 PERSON ASSISTANCE USING GAIT BELT AND WALKER. PATIENT REPORTED PAIN AND WAS TREATED WT MEDICAITONS PER ORDERS. DRESSINGS CHANGED TO LLE WITH MIN SS DRAINAGE TO THIGH DRESSING. PATIENT WAS AFEBRILE DURING SHIFT. FALL PRECAUTIONS IN PLACE AND NURSING WILL CONTINUE TO MONITOR.
[2019-03-15 19:50] VITALS: BP 126/74
--- NOTE | 2019-03-16 02:53 | NUR ---
UP TO TOILET WITH SBA, WALKING VERY GINGERLY ON LEFT FOOT. APPRECIATES HS PAIN MED AND HAS BEEN SLEEPING, LEFT FOOT PULSES 1+, EDEMA. PATIENT TOLERATING TRENDELENBERG TO KEEP FOOT ELEVATED. ALL DRESSINGS DRY AND WERE CHANGED YESTERDAY
[2019-03-16 09:02] VITALS: BP 116/76
[2019-03-16 10:53] LABS: ABSOLUTE NEUTROPHILS 4.6 thou/uL (1.4-8.2); BASOPHILS 0.9 % (0.0-2.0); EOSINOPHILS 1.8 % (0.0-3.0); HEMATOCRIT 26.3 % (37.0-47.0); HEMOGLOBIN 8.7 gm/dL (12.0-15.0); LYMPHOCYTES 20.9 % (24.0-44.0); MCH 22.8 pg (26.0-34.0); MCHC 33.1 g/dL (28.0-37.0); MONOCYTES 11.8 % (1.0-8.0); PLATELET COUNT 569 thou/uL (150-400); POLYS 64.6 % (36.0-66.0); RBC 3.81 mil/uL (4.20-5.00); RDW 24.9 % (10.5-14.5); WBC 7.2 thou/uL (4.0-11.0)
[2019-03-16 11:04] LABS: CALCIUM 9.2 mg/dL (8.5-10.1)
[2019-03-16 11:29] LABS: ANISOCYTOSIS 2+; HYPOCHROMASIA 2+; MICROCYTES 2+; PLATELET ESTIMATE INCREASED; POLYCHROMASIA 1+
--- NOTE | 2019-03-16 19:33 | HC ---
[facility] Dejon [place] [address] CONSULTATION Name: AL GUILLEN Room #: 511-P ADM IN M.R.#: [id number] Admission: 03/10/19 ������������������ Attend Phys: Odell Mead MD Discharge: ������������������ Date of : 78 Report #: [id number] THIS REPORT FOR: //name// CC: Sahara Cheyanneitalia Odell Mead DATE OF SERVICE: 03/14/2019 Psychological Consultation ATTENDING PHYSICIAN: Odell Mead MD. PHARMACIST APPRENTICE: Sebastian Mahmood, PhD CLINICAL PRESENTATION: The patient is a 38-year-old -[place] female, admitted to the rehabilitation unit at [facility] for rehabilitation program to improve functional mobility and activities of daily living and self-care secondary from left lower extremity peripheral artery disease and status post femoral to posterior tibial bypass graft. Her assessment on admission also includes acute blood loss anemia and iron deficiency anemia, gait instability, electrolyte abnormalities that are resolved, hypertension, hyperlipidemia and elevated glucose. A complete description of her medical condition and history can be found in her medical record. Psychological consultation was requested to provide assistance in the assessment of emotional status and to provide recommendations and services. Prior to this most recent medical event, she was working and living independently. The patient has 4 children and is employed in [employer]. She described a 1-year history of severe pain in her left foot. Difficulty in the diagnosis and early treatment of her foot pain and management is described until this most recent hospitalization. During this hospitalization she was diagnosed with peripheral artery disease. She has 2 siblings. Patient is a high school graduate. Increased stress is reported as the result of an end to a romantic relationship of 8 years. TECHNIQUES UTILIZED: Clinical interview, review of medical records, staff consultation and behavioral observation, family interview - mother. EXAMINATION FINDINGS: The patient was alert and cooperative with the assessment. She accurately described events surrounding her admission. She described a 12 month period in which she experienced severe pain in her foot and ankle. There is no evidence of aphasia. Her thoughts are logical and goal oriented. There is no evidence of thought disorder. She does not report auditory or visual hallucinations. There is no report of suicidal ideation. Her symptoms include sleep disturbance, decreased appetite and anxiety. [facility] [address] [place] [address] CONSULTATION Name: AL GUILLEN SANDY Room #: 511-P [facility] IN .R.#: [id number] Admission: 03/10/19 ������������������ Attend Phys: Odell Mead MD Discharge: ������������������ Date of : 78 Report #: [id number] Intermittent feelings of depression are also reported. Sleep is described as improved with the use of Percocet and Xanax. She does not report difficulty with memory or word finding. Her mother also says cognition is within normal limits, but does recognize increased anxiety. The patient appears to be presenting with an anxiety disorder. She has had treatment for anxiety and depression in the past, but did not persist with the use of an antidepressant. At this time, adjustment disorder with anxious and depressed mood appears likely given the acute nature of her medical condition, as well as recent end to relationship. DIAGNOSTIC IMPRESSION: Adjustment disorder with anxiety and depressed mood. RECOMMENDATIONS: I reviewed relaxation technique to assist with stress management, as well as pain control. She felt the procedure to be helpful. She will benefit from outpatient psychological counseling utilizing a cognitive behavioral approach to assist in her overall adjustment. The use of antidepressant medication may also be of benefit. Thank you very much for allowing me to provide the consultation on this patient. ��������������������������������������������� <ELECTRONICALLY SIGNED> ���������������������������������������� By: Sebastian Mahmood, PhD ��������������������������������������������� 03/16/19 1933 [id number] Sebastian Mahmood, PhD /nt
[2019-03-16 22:32] VITALS: BP 109/63
--- NOTE | 2019-03-17 06:31 | NUR ---
APPRECIATES PERCOCET Q 6-7 HOURS FOR PAIN AND ZANAFLEX WITH XANAX AT HS. UP TO BATHROOM WITH WALKER AND STANDBY ASSIST. LEFT LEG DRESSINGS DRY AND INTACT, TRENDELENBERG TO KEEP TOES OVER NOSE WHEN NOT UP OR EATING. LESS EDEMA AND PPP, SCD TO RIGHT LEG ONLY PLEASANT
[2019-03-17 07:45] VITALS: BP 124/75
--- NOTE | 2019-03-17 13:55 | NUR ---
team meeting, recommendation : dc with hh (pt, nursing) then transition to outpt therapy. recommendation bath bench from family to get her one prior to dc. fww
[2019-03-17 19:29] VITALS: BP 122/67
--- NOTE | 2019-03-18 02:04 | NUR ---
PT ALERT AND ORIENTED X 4. LEFT THIGH DRESSING CHANGED AT START OF SHIFT FOR MOD AMT SANQUINOUS DRAINAGE. INCISION C/D/I WITH SUTURES AND REDD. EDEMA NOTED IN LEFT LEG. PT WITH LOW GRADE FEVER 99.2. HAS NUMEROUS BLANKETS ON AND ROOM IS VERY WARM. OXYCODONE, XANAX AND TIZANIDINE GIVEN AT START OF SHIFT PER PT REQUEST. LEFT GREAT TOE REDDENED. PPP BILAT. LEFT FOOT WARM AND MOBILE. BED ALARM ON FOR SAFETY. PT APPEARS TO BE SLEEPING ON HOURLY ROUNDS.
--- NOTE | 2019-03-18 06:14 | NUR ---
LEFT MESSAGE WITH ANSWERING SERVICE FOR DR PARK REGARDING LEFT GREAT TOE REDNESS AND LOW GRADE FEVER.
[2019-03-18 08:00] VITALS: BP 119/75
--- NOTE | 2019-03-18 10:18 | NUR ---
Discharge Planning: DP faxed script for front wheel walker to [facility]. Also facesheet and papers (demo) from Carla (nurse, [facility])
--- NOTE | 2019-03-18 10:30 | NUR ---
cm visited with pt rt hh list and dme list " [facility], [facility] on hh approved list and with [facility] for dme"/[facility]. per pt referral sent to [facility], not in network, per pt 2nd choice send to [facility]- not in net work. rx for fww and bath chair with back sent to [facility] per cm team. will cont following as needed for dc needs. cm visited with pt that her insurance has notified acute rehab that last covered day would be today, and dcp changed to tomorrow " ok" per pt.
--- NOTE | 2019-03-18 16:53 | NUR ---
ASSUMED CARE AT APPROX 0715. PATIENT A/O X4. MADE MOD I IN ROOM WITH WALKER THIS DATE. CALLS APPROPRIATELY. CARDIOVASCULAR SURGERY ROUNDED ON PATIENT TODAY, SHEA DRESSING APPLIED TO LEFT INNER THIGH, INSTRUCTED TO LEAVE OTHER INCISIONS WELL DRILL OPERATOR CABLE TOOL. PATIENT HAD SHOWER WITH OT THIS AFTERNOON, COMPLETED DAY ACTIVITIES WITH PT. MEDICATED FOR PAIN PRN PER ORDERS. PATIENT RESTS IN BED IN TRENDELENBERG POSITION TO ELEVATE LLE, CALLS APPROPRIATELY FOR ASSISTANCE TO LOWER BED PRIOR TO AMBULATING. INISIONS WELL APPROXIMATED. SHEA DRESSING PATENT, PUMP ACTIVE. PATIENT'S SON AT BEDSIDE. WALKWAY CLEAR OF OBSTACLES. PATIENT RESTING IN BED AT THIS TIME. WILL CONTINUE TO MONITOR. PLAN IS D/C TOMORROW.
[2019-03-18 19:18] VITALS: BP 131/78
--- NOTE | 2019-03-19 01:14 | NUR ---
PT ALERT AND ORIENTED X 4. MODIFIED INDEPENDENT IN ROOM WITH WALKER. LEFT LEG INCISIONS C/D/I WITH REDD AND SUTURES. SHEA DRESSING TO LEFT THIGH C/D/I. PT C/O PAIN IN LEFT LEG. OXYCODONE AND TIZANIDINE GIVEN AT HS. PT APPEARS TO BE SLEEPING ON HOURLY ROUNDS.
[2019-03-19 07:57] VITALS: BP 115/68
[2019-03-19] MEDS ORDERED: CARDIZEM CD120 MG PO (08:11)
[2019-03-19] MEDS ORDERED: CLOPIDOGREL75 MG PO (08:11)
[2019-03-19] MEDS ORDERED: ATORVASTATIN CA40 MG PO (08:11)
[2019-03-19] MEDS ORDERED: COLACE100 MG PO (08:11)
[2019-03-19] MEDS ORDERED: ZANAFLEX4 MG PO (08:11)
[2019-03-19] MEDS ORDERED: XANAX 0.5 MG0.5 M1 PO (10:33)
--- NOTE | 2019-03-19 10:51 | NUR ---
DISCHARGE PLANNING. ANTICIPATED DISCHARGE PLANNED FOR TOMORROW TO HOME WITH HOME HEALTH SERVICES. HOME HEALTH REFERRAL FAXED TO [facility]. CALL PLACED AND VOICEMAIL LEFT FOR [facility] TO NOTIFY OF DISCHARGE DATE AND PATIENTS HH NEEDS. UNIT CM AWARE. FOLLOWING TO ASSIST.
--- NOTE | 2019-03-19 13:04 | NUR ---
CM VISITED WITH PT AGAIN TO LET HER KNOW THAT [facility] IS UNABLE TO ACCEPT FOR HH. " I DON'T CARE WHO IT IS WITH LONG TAKE INSURANCE, SEND TO [facility]"/AL. WILL CONT FOLLOWING NEEDED FOR DC NEED. PT TO DC HOME TODAY HH AND DME.
[2019-03-19 15:49] VITALS: BP 115/68
[2019-03-19 16:27] VITALS: BP 115/68
[2019-03-19 21:01] VITALS: BP 122/80
--- NOTE | 2019-03-19 21:10 | NUR ---
ASSUMED CARE AT 0715. PATIENT A/O X4. MOD I IN ROOM. MEDS GIVEN PER ORDERS. DISHCARGED TODAY. SHEA DRESSING C/D/I. REDD INTACT, INCISIONS WELL APPROXIMATED. MEDICATED FOR PAIN PER ORDERS. REVIEWED DISCHARGE EDUCATION WITH PATIENT IN DETAIL. PRESCRIPTIONS AND MED INFO SHEETS PROVIDED. PATIENT WAITING ON DME DELIVERY FROM [facility] [place]. [employer] WRITER CONTACTED, PER CM, DME TO BE DELIVERED TO PATIENT AT BEDSIDE. EQUIPMENT DID NOT ARRIVE PRIOR TO CHANGE OF SHIFT. [facility] [place] CONTACTED, CALLED BACK APPROX 1999, STATING EQUIPMENT WAS NOT IN STOCK AND THAT THIS HAD BEEN COMMUNICATED TO CASE MANAGEMENT. THIS NOT DOCUMENTED IN NOTES, NOT COMMUNICATED TO STAFF. PATIENT LEFT UNIT WITH STAFF ASSITANCE AT APPROX 2049.
--- NOTE | 2019-03-23 10:44 | PLAN ---
[facility] [place] [address] REHAB UNIT PLAN OF CARE Name: AL GUILLEN Room #: 511-P [facility] IN M.R.#: [id number] Admission: 03/10/19 ������������������ Attend Phys: Odell Mead MD Discharge: 03/19/19 ������������������ Date of : 76 Report #: [id number] THIS REPORT FOR: //name// CC: Sahara Mead DATE OF SERVICE: 03/11/2019 POST-ADMISSION PHYSICIAN EVALUATION SUBJECTIVE: The patient is a 38-year-old -Croatian female originally presented to [facility] with severe left lower extremity pain, 03/02/2019. She was found to have severe arterial occlusive disease and underwent a left femoral to posterior tibial bypass with reversed autogenous greater saphenous vein and intraoperative arteriogram, 03/05/2019. Postoperatively, she had acute blood loss anemia. She refused blood transfusions, but agreed to iron transfusions for which she had completed a total of 5 bags worth. Problems are noted with postoperative pain control. She was noted to have a SHEA drain x 3 to the left leg and dressings in place. She has a prior history of left ankle sprain with some premorbid instability and has had slow functional improvement. She has been admitted for acute in-hospital inpatient rehabilitation. Please see the full admission note dictation. Please see the noted past surgical history, social history, habits, allergies. ALLERGIES: She has no known drug allergies. MEDICATIONS: Please see the current medication list. This includes vitamins, herbals, and supplements. REVIEW OF SYSTEMS: No current complaints of chest pain, shortness of breath or abdominal discomfort. PHYSICAL EXAMINATION: GENERAL: A 38-year-old pleasant -Croatian female, in no obvious distress. Alert, pleasant, oriented. Facies are symmetric. VITAL SIGNS: Temperature 98.3, pulse 90, respirations 16, blood pressure 117/63. HEENT: Appeared to be benign. CHEST: Sounded clear to auscultation. CARDIAC: Regular rate and rhythm. ABDOMEN: Bowel sounds positive, nontender. EXTREMITIES: She has functional range of motion of both upper extremities with equal weigher packing. Strength is 4-/5. Left lower extremity, she has the SHEA drain x 3. Palpable pedal pulse, left and right, left foot is warm. She can lift her left lower extremity to gravity and is able to lift her right lower extremity better at least a grade 4-/5. She has been min to mod [place] [address] REHAB UNIT PLAN OF CARE Name: AL GUILLEN SANDY Room #: 511-P [facility] IN [facility]#: [id number] Admission: 03/10/19 ������������������ Attend Phys: Odell Mead MD Discharge: 03/19/19 ������������������ Date of : 76 Report #: [id number] stand and dependent for lower body dressing. ASSESSMENT: 1. Left lower extremity peripheral arterial disease, status post femoral to posterior tibial bypass, 03/05/2019, weightbearing as tolerated. 2. Acute blood loss anemia and iron deficiency anemia. Last recorded hemoglobin was 7.8. 3. Gait instability. 4. Electrolyte abnormalities that have resolved. 5. Hypertension. 6. Hyperlipidemia. 7. Elevated glucose. PLAN: The patient is admitted for acute inpatient rehabilitation. From a post-admission physician evaluation perspective, there are no relevant changes since the preadmission screening. Please see the above review of prior and current medical and functional conditions and comorbidities. Please see the patient's previous and current functional status. As far as risk of complications, the patient has multiple medical comorbidities as noted above. Initial plan of care involves the interdisciplinary acute inpatient rehabilitation program with goal of maximizing her functional independence, so she can hopefully return back to her prior living situation. Prognosis is reasonably good with estimated length of stay probably at least 5-10 days pending progress. Potential barriers would include her above noted comorbidities and decreased functional status. The patient meets diagnostic criteria for an acute in-hospital inpatient rehabilitation stay. She meets the medical necessity criteria. She does have the tolerance for therapies and has appropriate discharge goals back to the home setting. ��������������������������������������������� <ELECTRONICALLY SIGNED> ���������������������������������������� By: Odell Mead MD ��������������������������������������������� 03/23/19 1044 0744 0829 Odell Mead MD /[facility]
== END 2019-03-19 21:10 | disposition home health service (06) | DRG 300 ==
PROVIDERS: Nurse Practitioner; Nurse Practitioner Family; ADMIT Physical Medicine & Rehabilitation
DX: I73.9 Peripheral vascular disease, unspecified (principal); D62 Acute posthemorrhagic anemia; E87.8 Other disorders of electrolyte and fluid balance, not elsewhere classified; I10 Essential (primary) hypertension; R26.9 Unspecified abnormalities of gait and mobility; E78.5 Hyperlipidemia, unspecified; R73.01 Impaired fasting glucose; E87.6 Hypokalemia; F43.23 Adjustment disorder with mixed anxiety and depressed mood; N92.0 Excessive and frequent menstruation with regular cycle; Z79.899 Other long term (current) drug therapy; Z79.02 Long term (current) use of antithrombotics/antiplatelets; Z79.82 Long term (current) use of aspirin
CPT/HCPCS: 10112; 57116

== ENCOUNTER 2019-04-13 16:37 | Inpatient (IN) | payer OTHER ==
[~2019-04-13] VITALS: Ht 170.2 cm; Wt 46.9 kg
--- NOTE | ~2019-04-13 | O ---
[facility] [place] [address] OPERATIVE REPORT Name: AL GUILLEN Room #: 211-P ADM IN M.R.#: [id number] Admission: 04/13/19 ������������������ Attend Phys: Bayron Smith, Discharge: ������������������ Date of : 76 Report #: [id number] THIS REPORT FOR: //name// CC: Sahara Smith DATE OF SERVICE: 04/14/2019 PREOPERATIVE DIAGNOSIS: Left leg wound. POSTOPERATIVE DIAGNOSIS: Left leg wound. OPERATION: Incision and debridement of left leg wound. SURGEON: Drew Adams MD ANESTHESIA: General. INDICATIONS: The patient is a 38-year-old who earlier this year had a left femoral to posterior tibial artery bypass. Unfortunately, in 2 areas in the thigh, there was some separation of the wound with nonhealing and necrosis and because the graft is close to the wound, I thought it was important to debride and explore the wound in the operating room. In addition, the patient did not tolerate any sort of wound intervention in the office due to phobia. FINDINGS AND TECHNIQUE: After general anesthesia was established, the wounds were addressed. There were two wounds in the left thigh, one measured 3 x 1.5 cm in length and width and extended from skin and subcutaneous tissue and subcutaneous fat down to the graft. The other wound was 1 x 0.5 cm in size and comprised of skin, subcutaneous tissue and fat. The edges of the wounds were debrided sharply and then a curette was used to gently remove any necrotic tissue below this level. I also irrigated the wound with a syringe and needle to have a relatively low volume, but high pressure irrigation to gently cleanse the tissue over the graft. There appeared to be no important cellulitis in either wound. After the debridement was done, I was concerned that there would be a need for coverage of the larger wound and arrangements were made to contact Plastic Surgery for eventual coverage. In the interim, the wounds were dressed, fine mesh gauze was placed over the wounds and then a wound VAC was placed on top of the wound. The patient was [address] [address] OPERATIVE REPORT Name: AL GUILLEN [facility] Room #: 211-P [facility] IN M.R.#: [id number] Admission: 04/13/19 ������������������ Attend Phys: Bayron Smith DO Discharge: ������������������ Date of : 76 Report #: [id number] taken to the recovery area in satisfactory condition with minimal blood loss. All counts reported as correct. ��������������������������������������������� ���������������������������������������� By: ��������������������������������������������� 1639 1659 Drew Adams MD /nt
[~2019-04-13 16:37] MED LIST changes: +ACETAMINOPHEN325 M1 PO; +ASPIR 8181 MG PO; +ATORVASTATIN CA40 MG PO; +CARDIZEM CD120 MG PO; +CLOPIDOGREL75 MG PO; +COLACE100 MG PO; +FERREX 150 PLU1 EAC1 PO; +LMX TOP; +MIRALAX17 GM PO; +PERCOCET 10-321 EACH PO; +XANAX 0.5 MG0.5 M1 PO; +ZANAFLEX4 MG PO
[2019-04-13 18:18] LABS: HEMATOCRIT 32.9 % (37.0-47.0); HEMOGLOBIN 10.8 gm/dL (12.0-15.0); MCH 23.6 pg (26.0-34.0); MCHC 32.9 g/dL (28.0-37.0); MCV 71.7 fL (80.0-100.0); RBC 4.58 mil/uL (4.20-5.00); RDW 23.3 % (10.5-14.5); WBC 6.5 thou/uL (4.0-11.0)
[2019-04-13 18:32] LABS: APTT 20.3 Seconds (24.5-32.8); PROTIME 10.6 Seconds (9.3-11.4)
[2019-04-13 18:40] LABS: ALBUMIN 3.5 g/dL (3.4-5.0); CALCIUM 9.4 mg/dL (8.5-10.1); CREATININE 0.8 mg/dL (0.6-1.0); POTASSIUM 3.9 mmol/L (3.5-5.1); TOTAL BILIRUBIN 0.2 mg/dL (<0.1-1.0); TOTAL PROTEIN 7.8 g/dL (6.4-8.2)
--- NOTE | 2019-04-13 19:31 | NUR ---
38YO FEMALE ADMITTED DIRECTLY FROM DR. GALO FOR UPPER LEFT LEG WOUND DEBRIDEMENT IN THE MORNING. 20G SL IN R UPPER ARM, ORDERS RECEIVED FOR PROCEDURE IN AM, WILL CONTINUE TO MONITOR.
[2019-04-13 20:30] VITALS: BP 103/64
[2019-04-13] MEDS ORDERED: COLACE100 MG PO (20:46)
[2019-04-13] MEDS ORDERED: TRAZODONE HCL50 MG PO (20:49)
[2019-04-14 01:23] VITALS: BP 96/61
[2019-04-14 03:27] VITALS: BP 109/60
--- NOTE | 2019-04-14 05:18 | NUR ---
A/O X 4.PAIN IS PARTIALLY CONTROLLED.MONITOR SHOWS SINUS RHYTHM WITH 1ST DEGREE AV BLOCK.VOIDS TO THE BATHROOM.NPO SINCE MIDNIGHT FOR A WOUND VAC PLACEMENT IN AM.SHOWERED.WOUND CULTURE SENT TO THE LAB.HIBICLENS GIVEN.WILL MONITOR AND CONTINUE POC.
[2019-04-14 08:28] VITALS: BP 113/77
--- NOTE | 2019-04-14 11:34 | NUR ---
Nutrition: pt seen due to dx of LLE wound incision dehiscensce. S/P fem pop bypass in february. Pt having debridement and wound vac placement today. Reports stable weights and good appetite. BMI 30, obesity class 1. Encouraged adequate protein intake for wound healing. Pt voices understanding. Place as low risk.
[2019-04-14 16:29] VITALS: BP 120/99
--- NOTE | 2019-04-14 18:41 | NUR ---
ASSUMED CARE AT SHIFT CHANGE, ALERT AND ORIENTED X4. SR/1AVB, AND VSS. SURGERY WAS DONE TODAY AND WOUND VAC TO LT LEG APPLIED. REPORTED MILD PAIN WHEN AMBULATING TO BATH ROOM. PLAN IS DISCHARGE HOME WITH HOME HEALTH. AND WILL CONTINUE WITH POC.
[2019-04-14 20:33] VITALS: BP 108/67
[2019-04-15] VITALS (11 sets, daily range): BP systolic 102–126; BP diastolic 58–78
[2019-04-15 04:24] LABS: ALBUMIN 2.9 g/dL (3.4-5.0); CALCIUM 8.7 mg/dL (8.5-10.1); CREATININE 0.9 mg/dL (0.6-1.0); MAGNESIUM 1.8 mg/dL (1.8-2.4); POTASSIUM 4.2 mmol/L (3.5-5.1); TOTAL BILIRUBIN 0.2 mg/dL (<0.1-1.0); TOTAL PROTEIN 6.7 g/dL (6.4-8.2)
[2019-04-15 04:26] LABS: HEMATOCRIT 29.1 % (37.0-47.0); HEMOGLOBIN 9.7 gm/dL (12.0-15.0); MCH 23.9 pg (26.0-34.0); MCHC 33.2 g/dL (28.0-37.0); MCV 72.1 fL (80.0-100.0); RBC 4.04 mil/uL (4.20-5.00); RDW 23.1 % (10.5-14.5); WBC 7.8 thou/uL (4.0-11.0)
--- NOTE | 2019-04-15 05:54 | NUR ---
A/O X 4.PAIN IS FAIRLY CONTROLLED.WOUND VAC IN PLACE.DRESSING C/D/I.PLAN FOR PATIENT TO DISCHARGE TODAY.WILL MONITOR AND CONTINUE PLAN OF CARE.
[2019-04-15 13:39] LABS: % SATURATION 9 % (20-39); IRON 21 ug/dL (50-170); TIBC 238 ug/dL (250-450)
--- NOTE | 2019-04-15 15:33 | NUR ---
patient currently in sx. chart reviewed and sp with nursing. Patient admits with dehised wound from fem/pop. She currently has wound vac but may not need at dc. She was current with HH per RN captain/airline pilot. 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 Lives in apt with child. Casemgt following for dc planning.
--- NOTE | 2019-04-15 18:08 | NUR ---
ASSUMED CARE AT SHIFT CHANGE, ALERT AND ORIENTED X4. VSS. PATIENT IN SURGERY AT THIS TIME.
[2019-04-16] VITALS (8 sets, daily range): BP systolic 99–125; BP diastolic 54–80
--- NOTE | 2019-04-16 05:32 | NUR ---
PT. ARRIVED AT FLOOR FROM RECOVERY AT SHIFT CHANGE; PT. ON BED; AOX4; C/O PAIN OVER LEG; PULSE +1; ABLE TO MOVE LLE; CAPILLARY REFILL LESS THAN 3S; REQUESTED PRN PAIN MEDICATION; PRN IV PAIN MEDICATION GIVEN; RE-ASSESSMENT PT. ST. DECREASE PAIN; IV CHANGE TO R. FA; AT 2230 REQUESTED PRN PAIN MEDICATION; PRN PO MEDICATION GIVEN; ABLE TO STAND UP TO BED SIDE COMMODE; REFUSED YELLOW SUCKS; PREFER OWN FLIP FLOPS; EDUCATED ABOUT FALL PREVENTION; ST. UNDERSTANDING; REFUSED SCDs; ST. "I AM STANDING UP TO BED SIDE COMMODE"; ABLE TO REST AFTER 0100; REQUESTED PRN PAIN MEDICATION AT 0230; PRN IV PAIN MEDICATION GIVEN; RE-ASSESSMENT; PT. SLEEPING; ASSESSMENT CHARGED; FOLLOWING POC; MONITORING; WILL PASS ON REPORT.
--- NOTE | 2019-04-16 08:30 | NUR ---
ASSUMED CARE OF PT APPROX 0715, A&0X4, CLOSE SBA D/T EQUIPMENT, WOUND VAC TO L GROIN RUNNING, PRIOR SURGERY SHOWS SCAR FROM L GROIN TO LEFT ANKLE, SLIGHT SWELLING IN LLE, UP ON PILLOW, PT MAKING POSITION CHANGES HERSELF; LOW GRADE TEMP THIS A.M. DR PARK AWARE, PT ENCOURAGED W/DEEP SLOW BREATHING IN AND OUT WELL COUGHING NEEDED. PAIN MANAGED AT THIS TIME; WILL MAINTAIN NEEDS. ENCOURAGED PT TO USE CALL LIGHT FOR ANY NEEDS. 02 RUNNING IN WALL YET SHE'S NOT HOOKED UP AND IT'S SET TO ZERO. WILL CALL RT TO HAVE THEM FIX SO THE COMPRESSION OF AIR SOUND DOESN'T BOTHER HER.
--- NOTE | 2019-04-16 14:20 | NUR ---
PHYSICIAN CALL: CALLED DR. LEE, WHO RETURNED CALL IMMEDIATELY, TO SEEK CLARIFICATION ON PT'S AMBULATION/WT BEARING STATUS. HE STATES SHE CAN WALK TO RESTROOM AND IN HALLWAYS BRIEFLY. NO LONG PERIODS OF STANDING, WALKING AND TO KEEP LLE ELEVATED W/TWO PILLOWS. SOUGHT OUT MORE PILLOWS FOR HER COMFORT AND AM KEEPING PAIN/SPASMS AT BAY WITH HER RX MEDICATIONS. SHE STATES SHE TAKES FLEXERILL AT HOME AND DIDN'T REALIZE IT WAS ALSO AVAILABLE HERE. STARTED BACK ON IT THIS AM. SHE JUST WALKED W/THERAPY IN HALLS. IN GOOD SPIRITS, WILL CONTINUE TO MONITOR
--- NOTE | 2019-04-16 15:02 | NUR ---
PT CONTINUES IN SAME VEIN, A&OX4, AMB W/SBA FOR PRACTICALITY WITH WOUND VAC AND IV POLE. AMB ONCE IN HALLWAY, AND UP TO BSC THROUGH OUT DAY. MAINTENANCE IVF D/C'D. FAMILY VISITING, GAVE EVERYONE SNACKS AND ENCOURAGED PT TO USE CALL LIGHT FOR ANY NEEDS
--- NOTE | 2019-04-16 16:35 | NUR ---
Pt did well with therapy today and has a rwalker from her previous dc last month. [facility] was her hh provider and they dc'd services on 04/03/19. They are in network with her insurance plan and can accept her again if services are needed. Will continue to follow along for possible hh nursing services for wound care/or wound vac at home. Pt has supportive family and is on FMLA from her job.
--- NOTE | 2019-04-17 03:10 | NUR ---
ASSUMED PT CARE AT 1900. PT A/OX4, VITAL SIGNS STABLE, ASSESSMENT CHARTED. PAIN ADEQAUTELY MANAGED WITH PAIN MEDICATION. WOUND VAC AND THAIS DRAIN IN PLACE, DRAINING APPROPRIATELY. RESTED WELL THROUGH THE NIGHT. PROGRESSING TOWARD PLAN OF CARE. WILL CONTINUE TO MONITOR.
[2019-04-17 04:49] VITALS: BP 133/82
[2019-04-17 08:58] VITALS: BP 135/76
[2019-04-17] MEDS ORDERED: HYDROCODON-ACE1 EAC7 PO (10:58)
[2019-04-17] MEDS ORDERED: AUGMENTIN 875-1 EACH PO (11:50)
--- NOTE | 2019-04-17 12:16 | NUR ---
PT DCING HOME TODAY. WOUND VAC DC'D. PT INSTRUCTED ON WOUND CARE INSTRUCTIONS FROM PLASTICS. NO HH INDICATED. PT IS DOING WELL AND DENIES ANY OTHER DC NEEDS OR CONCERNS.
[2019-04-17 12:26] VITALS: BP 135/76
[2019-04-17 12:31] VITALS: BP 122/68
--- NOTE | 2019-04-17 13:09 | NUR ---
ASSUMED CARE OF PT AT SHIFT CHANGE. PAIN NEEDS/SLEEP TAKEN CARE OF THRU NIGHT AT PT'S DELIGHT. PHYSICIAN HAD REMOVED WOUND VAC AND PLACED MEDICATION/DRESSING AND HAS IT WRAPPED IN KERLIX AND CECELIA BANDAGE W/INSTRUCTIONS NOT TO REMOVE UNTIL SATURDAY. DISHCARGE PAPERS GONE OVER AND PT VERBALIZES UNDERSTANDING. IV AND TELE BOX REMOVED PRIOR TO D/C. PT TO CALL WITHIN 10 MINUTES BEFORE HER RIDE ARRIVES TO WE CAN HAVE TRANSFER SET UP FOR HER. PT AMB SAFELY ALONE WITHOUT HER ENCUMBERANCES.
== END 2019-04-17 14:47 | disposition home or self-care (01) | DRG 571 ==
LOC: 2N 16:37 → ENTRNSPT 04-17 14:28 → EDTRNSPTSTS 04-17 14:30 → 2N 04-17 14:47
PROVIDERS: Internal Medicine; Nurse Practitioner Family; ADMIT Internal Medicine Geriatric Medicine
PROC: 0JBM0ZZ Excision of Left Upper Leg Subcutaneous Tissue and Fascia, Open Approach (ICD-10-PCS; principal; 2019-04-14)
DX: L03.116 Cellulitis of left lower limb (principal); T81.30XA Disruption of wound, unspecified, initial encounter; I10 Essential (primary) hypertension; E78.5 Hyperlipidemia, unspecified; E11.51 Type 2 diabetes mellitus with diabetic peripheral angiopathy without gangrene; D64.9 Anemia, unspecified; Z87.891 Personal history of nicotine dependence; Z85.3 Personal history of malignant neoplasm of breast; Z79.82 Long term (current) use of aspirin; Z79.899 Other long term (current) drug therapy
CPT/HCPCS: 10081; 50010; 50101; 50331; 50386; 50404; 50445; 50643; 50953; 50970; 51412; 56525; 56527; 62110; 62900; 70005

== ENCOUNTER 2019-05-19 05:22 | Inpatient (IN) | payer OTHER ==
[2019-05-15 10:03] LABS: BASOPHILS 1.9 % (0.0-2.0); EOSINOPHILS 1.5 % (0.0-3.0); HEMATOCRIT 36.6 % (37.0-47.0); LYMPHOCYTES 36.1 % (24.0-44.0); MCH 23.9 pg (26.0-34.0); MCHC 32.9 g/dL (28.0-37.0); MCV 72.9 fL (80.0-100.0); MONOCYTES 10.2 % (1.0-8.0); PLATELET COUNT 416 thou/uL (150-400); POLYS 50.3 % (36.0-66.0); RBC 5.03 mil/uL (4.20-5.00); RDW 20.9 % (10.5-14.5); WBC 5.9 thou/uL (4.0-11.0)
[2019-05-15 10:12] LABS: APTT 28.5 Seconds (24.5-32.8); PROTIME 10.6 Seconds (9.3-11.4)
[2019-05-15 10:16] LABS: ANISOCYTOSIS 2+; HYPOCHROMASIA 1+; MICROCYTES 2+; PLATELET ESTIMATE NORMAL
[2019-05-15 10:17] LABS: ALBUMIN 3.8 g/dL (3.4-5.0); CALCIUM 7.9 mg/dL (8.5-10.1); TOTAL BILIRUBIN 0.3 mg/dL (<0.1-1.0); TOTAL PROTEIN 8.4 g/dL (6.4-8.2)
[2019-05-15 10:31] LABS: URINE BILIRUBIN NEGATIVE (Negative); URINE BLOOD NEGATIVE (Negative); URINE CLARITY CLEAR; URINE COLOR YELLOW; URINE GLUCOSE-RANDOM* NEGATIVE (Negative); URINE KETONES NEGATIVE (Negative); URINE LEUKOCYTES-REFLEX NEGATIVE (Negative); URINE NITRITE-REFLEX NEGATIVE (Negative); URINE PROTEIN (DIPSTICK) NEGATIVE (Negative); URINE UROBILINOGEN 0.2 E.U./dl (0.2-1.0)
--- NOTE | 2019-05-17 19:47 | EKG ---
[address] [address] ELECTROCARDIOGRAM REPORT Name: BENTONRAYNE EagleMELISSAMarlon SANDY Room #: PRE [facility]#: [id number] ������������������ Admission: ������������������ Attend Phys: Drew Adams MD Discharge: ������������������ Date of : 76 Report #: [id number] ����������������������������������������������������������������� [id number] THIS REPORT FOR: //name// [facility] Test Date: 2019-05-15 Test Time: 09:57:49 Pat Name: AL GUILLEN Department: Room: Gender: F Medical Records Coder: Fuentes COLE : 1980 Requested By: Drew Adams Order Number: [id number] MD: Gerry Gomez Measurements Intervals [place] Rate: 65 P: 51 MT: 172 QRS: 23 QRSD: 96 T: 9 QT: 428 QTc: 445 Interpretive Statements Sinus rhythm Compared to ECG 03/05/2019 19:30:21 Sinus tachycardia no longer present T-wave abnormality no longer present Electronically Signed On 05-17-2019 19:46:58 CDT by Gerry Gomez [email or web address] ��������������������������������������������� <ELECTRONICALLY SIGNED> ���������������������������������������� By: Gerry Gomez MD ��������������������������������������������� 05/17/191945 Gerry Gomez MD /[facility]
[2019-05-19] VITALS (8 sets, daily range): BP systolic 103–118; BP diastolic 52–68
[~2019-05-19] VITALS: Ht 170.2 cm; Wt 88.0 kg
[~2019-05-19 05:22] MED LIST changes: +AUGMENTIN 875-1 EACH PO; +DILTIAZEM 24HR120 M2 PO; +FERREX 150150 MG PO; +HYDROCODON-ACE1 EAC7 PO; +LIPITOR40 MG PO; +NORCO 5-325 TA1 EAC1 PO; +PLAVIX 75 MG TA75 M1 PO; +PROZAC20 M1 PO; +TRAZODONE HCL50 MG PO; +TYLENOL325 MG PO
--- NOTE | 2019-05-19 14:17 | NUR ---
PT ADMITTED FROM PACU APPROX 1330. POST OP FOR LLE WOUND DEBRIDEMENT. DSG C/D/I. WOUND VAC INTACT. PT ALERT AND ORIENTED X4. REPORTS LLE PAIN 05/06. MEDICATED. WILL F/U WITH EFFECTIVENESS. DENIES SOA. IVF INITITATED. VSS. NO DISTRESS NOTED AT THIS TIME.
--- NOTE | 2019-05-19 18:34 | NUR ---
ASSUMED PT CARE AT 1325. PT ALERT AND ORIENTED X4. PT'S MOM AND SON CAME TO VISIT HER. PT COMPLAINED OF PAIN IN HER LEFT LEG FROM THE WOUND DEBRIDEMENT. PT COMPLAINED OF NAUSEA. PT'S NAUSEA RELIEVED WHEN MEDICATION WAS GIVEN. PT'S PAIN DECREASED WHEN GIVEN MEDICATION. PT ASSIST X1. PT USING BEDSIDE COMMODE. PT'S LEFT LEG IS WEIGHT BEARING PER AYDEE PETERSON. FALL PRECAUTIONS ARE IN PLACE. PT HAS A THAIS DRAIN. THERE HAS BEEN ZERO OUTPUT IN THE THAIS DRAIN SINCE HER ARRIVAL TO THE FLOOR. THE PT ALSO HAS A WOUND VAC ATTACHED TO THE BED. POST-OPERATIVE VITAL SIGNS WERE COMPLETED AT 1825. PT ON REGULAR DIET AND IS TOLERATING FOOD WELL. PT COMFORTABLE IN BED.
[2019-05-20 00:45] VITALS: BP 95/51
--- NOTE | 2019-05-20 02:51 | NUR ---
ASSESSMENT CHARTED. VSS. PT C/O LEG PAIN CONTROLED WITH PRN PAIN MEDS PER EMAR. WOUND VAC AND THAIS DRAIN IN PLACE. PT SLEEPING WELL THROGUHOUT THE NIGHT. PLAN FOR LABS THIS AM. WILL CONTINUE TO MONITOR AND WITH POC.
[2019-05-20 04:45] VITALS: BP 105/55; BP 113/70
[2019-05-20 05:02] LABS: MCH 24.7 pg (26.0-34.0); MCHC 33.4 g/dL (28.0-37.0); RBC 3.24 mil/uL (4.20-5.00); RDW 19.7 % (10.5-14.5)
[2019-05-20 05:11] LABS: CALCIUM 8.5 mg/dL (8.5-10.1); POTASSIUM 4.4 mmol/L (3.5-5.1)
[2019-05-20 07:24] VITALS: BP 95/54
[2019-05-20 11:58] VITALS: BP 103/55
--- NOTE | 2019-05-20 13:34 | NUR ---
Pt seen for wound (per RD screening), here for LLE wound revision. S/p re-elevation and advancement keystone flap to L thigh on 05/19. L thigh vascular wound documented. Recent fem pop bypass in February. Pt on a regular diet, eating well. Visited w/ pt during lunch. She reports appetite is good/high. Wt is very stable. Weighing 194-200# over the last year. Pt denies any nutrition concerns or interventions. Voices past education on increased protein needs. Remains low nutrition risk.
--- NOTE | 2019-05-20 17:08 | O ---
[facility] [address] [address] OPERATIVE REPORT Name: AL GUILLEN Room #: 217-P ADM IN M.R.#: [id number] Admission: 05/19/19 ������������������ Attend Phys: Drew Adams MD Discharge: ������������������ Date of : 76 Report #: [id number] THIS REPORT FOR: //name// CC: Sahara Jhony Adams DATE OF SERVICE: 05/19/2019 PREOPERATIVE DIAGNOSIS: Left thigh wound. POSTOPERATIVE DIAGNOSIS: Left thigh wound. OPERATION: Exploration of left thigh wound and exposure of the femoral tibial bypass in conjunction with wound closure by Plastic Surgery. SURGEON: Drew Adams MD and Dr. Drew Dias. ANESTHESIA: General. INDICATIONS: The patient is a 39-year-old known to me from previous left femoral to tibial artery bypass. The patient has had nonhealing of a left thigh wound. Dr. Dias had helped us with a keystone flap advancement approximately one month ago. Unfortunately, an area of this has broken down and reexploration of the wound is mandated. FINDINGS AND TECHNIQUE: After general anesthesia was established, Dr. Dias designed the keystone flap and made the initial incisions for advancement of this flap. My participation involved extending this incision deeply and medially in the areas of the graft. Care was taken before surgery to identify the graft with 2D Doppler and also in the operating room to use the Doppler pencil to ascertain the position of the graft with respect to the wound. It appeared that the wound formed the anterior and medial border of the wound. Care was taken to expose this area using loupe magnification of 4.5. The graft was preserved, and flap was made to Dr. Dias's specification, but by myself, on the anterior and medial aspect of this. When we felt that the graft had been satisfactorily exposed and that margin for closure was obtained, it was trimmed of avascular scar. Then, Dr. Dias continued with his portion of the procedure to fully mobilize the keystone flap, advance it, and then ultimately closed the wound. The patient tolerated the procedure well. Doppler signal was ascertained at the [facility] [address] [place] [address] OPERATIVE REPORT Name: AL GUILLEN SANDY Room #: 217-P ADM IN M.R.#: [id number] Admission: 05/19/19 ������������������ Attend Phys: Drew Adams MD Discharge: ������������������ Date of : 76 Report #: [id number] end of the procedure to confirm that the graft had been preserved. All counts were reported as correct. ��������������������������������������������� <ELECTRONICALLY SIGNED> ���������������������������������������� By: Drew Adams MD ��������������������������������������������� 05/20/19 1708 1248 1306 Drew Adams MD /nt
--- NOTE | 2019-05-20 17:38 | NUR ---
PT ALERT AND ORIENTED. VSS. RECEIVED PRN PAIN MED FOR LEFT THIGH PAIN WITH PARTIAL RELIEF. PARTICIPATED IN PT AND OT. WOUND VAC INTACT. WILL CONTINUE TO MONITOR.
[2019-05-20 19:55] VITALS: BP 115/67
[2019-05-21 00:14] VITALS: BP 104/53
--- NOTE | 2019-05-21 03:19 | NUR ---
ASSUMED PT CARE AT 1900. PT A/OX4, VITAL SIGN STABLE, ASSESSMENT CHARTED. PAIN ADEQAUTELY MANAGED WITH PAIN MEDICATION. PLASTIC SURGEON VISITED WITH PATIENT AND WENT OVER PLAN FOR REPLACING WOUND VAC. PT RESTED WELL THROUGH THE NIGHT. PROGRESSING WELL TOWARD PLAN OF CARE, WILL CONTINUE TO MONITOR.
[2019-05-21 04:45] VITALS: BP 100/57
[2019-05-21 05:29] LABS: HEMATOCRIT 23.5 % (37.0-47.0); HEMOGLOBIN 7.8 gm/dL (12.0-15.0); MCH 24.6 pg (26.0-34.0); MCHC 33.2 g/dL (28.0-37.0); MCV 74.1 fL (80.0-100.0); RBC 3.17 mil/uL (4.20-5.00); RDW 19.8 % (10.5-14.5); WBC 8.5 thou/uL (4.0-11.0)
[2019-05-21 05:40] LABS: CALCIUM 8.3 mg/dL (8.5-10.1); CREATININE 0.8 mg/dL (0.6-1.0); MAGNESIUM 1.7 mg/dL (1.8-2.4); POTASSIUM 4.4 mmol/L (3.5-5.1)
[2019-05-21 07:29] VITALS: BP 101/59
[2019-05-21 11:17] VITALS: BP 119/60
--- NOTE | 2019-05-21 14:32 | NUR ---
Chart reviewed and discussed with the care team. Pt is well known to cm from previous admission. Plastics to change her wound vac. Outpt f/u anticipated at dc. No hh or infusion needs indicated. Will follow along should dc needs arise.
--- NOTE | 2019-05-21 14:58 | NUR ---
ASSESSMENT CHARTED. PT ALERT AND ORIENTED. VSS. RECEIVED PRN PAIN MED WITH PARTIAL RELIEF. WOUND VAC ON THE LEFT THIGHT INTACT. J.P DRAIN PATENT WITH MINIMAL DRAINAGE. NO CONCERNS AT THIS TIME. WILL CONTINUE TO MONITOR.
[2019-05-21 16:30] VITALS: BP 104/58
[2019-05-21 19:34] VITALS: BP 101/67
[2019-05-22 04:00] VITALS: BP 93/58
--- NOTE | 2019-05-22 06:43 | NUR ---
NO OVERNIGHT EVENTS. WOUND VAC INTACT. PT RECEIVED NORCO TWICE LAST NIGHT FOR PAIN. PT IS AMBULATING WELL. PT IS PROGRESSING. WILL CONTINUE TO MONITOR.
[2019-05-22 08:06] VITALS: BP 110/48
[2019-05-22 12:01] VITALS: BP 110/48
[2019-05-22 12:04] VITALS: BP 112/56
--- NOTE | 2019-05-22 13:28 | NUR ---
ASSESSMENT CHARTED. PT ALERT AND ORIENTED. VSS. RECEIVED PRN PAIN MED WITH PARTIAL RELIEF. WOUND VAC INTACT. SEEN BY DR. PARK. ORDERS GIVEN TO DISCHARGE PT TO HOME. DISCHARGE INSTRUCTIONS GIVEN TO PT. PT VERBERLIZE UNDERSTANDING.
== END 2019-05-22 13:20 | disposition home or self-care (01) | DRG 909 ==
LOC: 2N 05:22 → TBA 05:22 → PRE 05:31 → 2N 13:29 → EDSTATUS 13:34 → OR 13:34 → PRE 13:35 → ENTRNSPT 05-22 13:05 → EDTRNSPTSTS 05-22 13:07 → 2N 05-22 13:20
PROVIDERS: Internal Medicine; Physician Assistant; ADMIT Surgery Vascular Surgery
PROC: 0JU Subcutaneous Tissue and Fascia, Supplement (ICD-10-PCS; principal; 2019-05-19)
DX: T81.31XA Disruption of external operation (surgical) wound, not elsewhere classified, initial encounter (principal); I73.9 Peripheral vascular disease, unspecified; F41.9 Anxiety disorder, unspecified; G62.9 Polyneuropathy, unspecified; E78.5 Hyperlipidemia, unspecified; D64.9 Anemia, unspecified; D72.829 Elevated white blood cell count, unspecified; Z79.899 Other long term (current) drug therapy; Z79.82 Long term (current) use of aspirin; Z80.3 Family history of malignant neoplasm of breast; Z83.3 Family history of diabetes mellitus; Z82.49 Family history of ischemic heart disease and other diseases of the circulatory system; Y83.8 Other surgical procedures as the cause of abnormal reaction of the patient, or of later complication, without mention of misadventure at the time of the procedure; Y92.89 Other specified places as the place of occurrence of the external cause
CPT/HCPCS: 10081; 48888; 50010; 50101; 50331; 50386; 50403; 50643; 50953; 56525; 56526; 56527; 57160; 62110; 62900; 70005

== ENCOUNTER 2019-07-24 21:09 | Emergency (ER) | payer OTHER ==
[~2019-07-24] VITALS: Ht 160 cm; Wt 90.7 kg
[2019-07-24 22:28] LABS: HEMATOCRIT 28.4 % (37.0-47.0); HEMOGLOBIN 9.4 gm/dL (12.0-15.0); MCH 24.6 pg (26.0-34.0); MCHC 33.1 g/dL (28.0-37.0); MCV 74.2 fL (80.0-100.0); RBC 3.83 mil/uL (4.20-5.00); RDW 16.1 % (10.5-14.5); WBC 8.3 thou/uL (4.0-11.0)
[2019-07-24 22:42] LABS: ANION GAP 12 mmol/L (7-16); BUN 10 mg/dL (7-18); CALCIUM 8.7 mg/dL (8.5-10.1); CHLORIDE 105 mmol/L (98-107); CO2 23 mmol/L (21-32); CREATININE 0.9 mg/dL (0.6-1.0); GLUCOSE 93 mg/dL (74-106); POTASSIUM 3.7 mmol/L (3.5-5.1); SODIUM 140 mmol/L (136-145)
[2019-07-24 22:48] LABS: ALBUMIN 3.4 g/dL (3.4-5.0); DIRECT BILIRUBIN < 0.1 mg/dL (<0.1-0.3); LIPASE 296 U/L (73-393); MAGNESIUM 1.9 mg/dL (1.8-2.4); SGOT 22 U/L (15-37); SGPT 37 U/L (30-65); TOTAL BILIRUBIN 0.3 mg/dL (<0.1-1.0); TOTAL PROTEIN 7.3 g/dL (6.4-8.2)
[2019-07-24 23:25] VITALS: BP 145/71
== END 2019-07-24 23:30 | disposition home or self-care (01) ==
LOC: ER 21:09
PROVIDERS: Emergency Medicine
DX: N94.6 Dysmenorrhea, unspecified (principal); I10 Essential (primary) hypertension; E78.00 Pure hypercholesterolemia, unspecified; F32.9 Major depressive disorder, single episode, unspecified; F41.9 Anxiety disorder, unspecified; Z87.891 Personal history of nicotine dependence; Z98.890 Other specified postprocedural states

== ENCOUNTER → 2019-09-07 | Outpatient (CLI) | payer OTHER | LOC: ULTRA 12:30 | DX: I70.212 Atherosclerosis of native arteries of extremities with intermittent claudication, left leg (principal) ==

== ENCOUNTER 2019-10-23 12:11 | Emergency (ER) | payer OTHER ==
[~2019-10-23] VITALS: Ht 167.6 cm; Wt 90.7 kg
[2019-10-23 13:17] LABS: ABSOLUTE NEUTROPHILS 12.2 thou/uL (1.4-8.2); BASOPHILS 0.3 % (0.0-2.0); EOSINOPHILS 0.3 % (0.0-3.0); HEMATOCRIT 36.2 % (37.0-47.0); HEMOGLOBIN 11.8 gm/dL (12.0-15.0); LYMPHOCYTES 11.1 % (24.0-44.0); MCH 22.4 pg (26.0-34.0); MCHC 32.4 g/dL (28.0-37.0); PLATELET COUNT 498 thou/uL (150-400); POLYS 84.3 % (36.0-66.0); RBC 5.25 mil/uL (4.20-5.00); RDW 18.7 % (10.5-14.5); WBC 14.5 thou/uL (4.0-11.0)
[2019-10-23 13:24] LABS: CALCIUM 9.8 mg/dL (8.5-10.1); CREATININE 0.9 mg/dL (0.6-1.0); POTASSIUM 4.7 mmol/L (3.5-5.1)
[2019-10-23 13:30] LABS: ALBUMIN 4.1 g/dL (3.4-5.0); TOTAL BILIRUBIN 0.7 mg/dL (<0.1-1.0); TOTAL PROTEIN 9.2 g/dL (6.4-8.2)
[2019-10-23 13:44] LABS: ANISOCYTOSIS 2+; HYPOCHROMASIA 2+; MICROCYTES 2+
[2019-10-23 14:32] LABS: URINE BILIRUBIN NEGATIVE (Negative); URINE BLOOD NEGATIVE (Negative); URINE CLARITY CLEAR; URINE COLOR YELLOW; URINE GLUCOSE-RANDOM* NEGATIVE (Negative); URINE KETONES 1+ (Negative); URINE LEUKOCYTES-REFLEX NEGATIVE (Negative); URINE NITRITE-REFLEX NEGATIVE (Negative); URINE PROTEIN (DIPSTICK) NEGATIVE (Negative); URINE SPECIFIC GRAVITY 1.025 (1.005-1.035); URINE UROBILINOGEN 0.2 E.U./dl (0.2-1.0)
--- NOTE | 2019-10-23 15:06 | EKG ---
[address] [place] [address] ELECTROCARDIOGRAM REPORT Name: AL GUILLEN Room #: REG [facility]#: [id number] Admission: 10/23/19 Attend Phys: Discharge: Date of : 76 Report #: [id number] THIS REPORT FOR: //name// [facility] ED Test Date: 2019-10-23 Test Time: 12:48:11 Pat Name: AL GUILLEN Department: Room: Gender: F Hole Puncher Strap: RANCHO : 1980 Requested By: Carolyn Pena Order Number: [id number] MD: Gerry Gomez Measurements Intervals [place] Rate: 94 P: 54 SC: 152 QRS: 56 QRSD: 90 T: 16 QT: 375 QTc: 469 Interpretive Statements Sinus rhythm Borderline low voltage, extremity leads Compared to ECG 05/15/2019 09:57:49 Myocardial infarct finding now present Electronically Signed On 10-23-2019 15:05:55 AUTOMATIC WINDER OPERATOR by Gerry Gomez [email or web address] <ELECTRONICALLY SIGNED> By: Gerry Gomez MD 10/23/19 1505 1248 1248 Gerry Gomez MD /[facility]
[2019-10-23] MEDS ORDERED: ZOFRAN ODT4 MG PO ×2 (15:46→15:48)
[2019-10-23] MEDS ORDERED: BENTYL 10 MG CA10 MG PO ×2 (15:46→15:49)
[2019-10-23 16:20] VITALS: BP 100/57
== END 2019-10-23 16:21 | disposition home or self-care (01) ==
LOC: ER 12:11
PROVIDERS: Physician Assistant
DX: K52.9 Noninfective gastroenteritis and colitis, unspecified (principal); E86.0 Dehydration; D25.9 Leiomyoma of uterus, unspecified; I10 Essential (primary) hypertension; F32.9 Major depressive disorder, single episode, unspecified; E78.00 Pure hypercholesterolemia, unspecified; Z98.890 Other specified postprocedural states

== ENCOUNTER → 2020-09-28 | Outpatient (CLI) | payer OTHER ==
[~2020-09-28] MED LIST changes: +BENTYL 10 MG CA10 MG PO; +ZOFRAN ODT4 MG PO
== END ==
LOC: SJCVCIMAG
PROVIDERS: ATTEND Nuclear Medicine Nuclear Cardiology
DX: I70.202 Unspecified atherosclerosis of native arteries of extremities, left leg (principal)

== ENCOUNTER 2020-09-29 09:35 | Inpatient (IN) | payer OTHER ==
[2020-09-29] VITALS (7 sets, daily range): BP systolic 115–126; BP diastolic 57–73
[~2020-09-29] VITALS: Ht 170.2 cm; Wt 98.0 kg
[2020-09-29 12:09] LABS: HEMATOCRIT 31.4 % (37.0-47.0); HEMOGLOBIN 9.9 gm/dL (12.0-15.0); MCHC 31.5 g/dL (28.0-37.0); MCV 63.4 fL (80.0-100.0); RBC 4.94 mil/uL (4.20-5.00); RDW 20.9 % (10.5-14.5); WBC 8.1 thou/uL (4.0-11.0)
[2020-09-29 12:19] LABS: CALCIUM 9.3 mg/dL (8.5-10.1); CREATININE 0.9 mg/dL (0.6-1.0); POTASSIUM 4.7 mmol/L (3.5-5.1)
[2020-09-29 15:48] LABS: APTT 26.1 Seconds (24.5-32.8); INR 1.1
--- NOTE | 2020-09-29 18:24 | NUR ---
NEW ADMIT POST LEFT LEG RUN OFF. RIGHT GROIN SIGHT C/D/I. BEDREST COMPLETED AT 1700. POST CARDIAC VS COMPLETED. ALERT X4, FROM HOME. INDEPENDENT WITH ADL'S. UP AB FABIANO. HEPARIN STARTED PER PROTOCOL. FELICIANO PLANNED FOR SATURDAY MORI. CLEAR LIQUIDS ONLY AFTER MIDNIGHT UNTIL 0300, THEN NPO.DR PARK AND DR HDZ ROUNDED POST PROCEDURE. ADDMISSION ASSESMENT, HISTORY, AND EDUCATION COMPLETD. ORDERS ACKNOWLDGE AND IMPLIMENTED. CALL LIGHT AND PERSONAL ITEMS IN REACH.
[2020-09-30] VITALS: BP 96/58
--- NOTE | 2020-09-30 06:14 | NUR ---
ASSUMED PT CARE AT THE CHANGE OF SHIFT, PT IS AWAKE, ALERT AND ORIENTED, ASSESSMENTS CHARTED, SR ON TELE, SINUS TACH WITH ACTIVITY, HEPARIN INFUSING PER PROTOCAL, NEXT APTT AT 0820, R. GROIN SITE CDI, NO HEMATOMA, PAIN MEDICINE GIVEN FOR THE LEFT LEG PAIN WITH RELIEF, NPO FOR FELICIANO IN TODAY, DENIES HAVING CONCERNS, WILL PASS ON REPORT
[2020-09-30 08:10] VITALS: BP 115/55
--- NOTE | 2020-09-30 08:12 | EKG ---
[facility] Dejon [place] [address] ELECTROCARDIOGRAM REPORT Name: AL GUILLEN Room #: 205-P ADM IN M.R.#: [id number] Admission: 09/29/20 Attend Phys: Tripp Toscano MD Discharge: Date of : 76 Report #: [id number] THIS REPORT FOR: cc: Sahara Booker MD, Cora A. MD Couchonnal, Luis F. MD ~ THIS REPORT FOR: //name// [facility] Test Date: 2020-09-30 Test Time: 07:04:54 Pat Name: AL GUILLEN Department: Room: 205 P Gender: F Nursing Support Worker: PRECIOUS : 1980 Requested By: Dai Taylor Order Number: [id number] MD: Gerry Gomez Measurements Intervals [place] Rate: 72 P: 49 AR: 171 QRS: 24 QRSD: 93 T: 4 QT: 389 QTc: 426 Interpretive Statements Sinus rhythm ST elev, probable normal early repol pattern Compared to ECG 10/23/2019 12:48:11 ST (T wave) deviation now present Electronically Signed On 09-30-2020 8:12:27 PROPOSAL DEVELOPMENT MANAGER by Gerry Gomez [email or web address] <ELECTRONICALLY SIGNED> By: Gerry Gomez MD 09/30/20811 3 3 Gerry Gomez MD /EPI
[2020-09-30 08:31] LABS: HEMATOCRIT 29.2 % (37.0-47.0); HEMOGLOBIN 9.6 gm/dL (12.0-15.0); MCH 20.7 pg (26.0-34.0); MCHC 32.8 g/dL (28.0-37.0); MCV 63.1 fL (80.0-100.0); RBC 4.63 mil/uL (4.20-5.00); RDW 20.3 % (10.5-14.5); WBC 6.9 thou/uL (4.0-11.0)
[2020-09-30 08:48] LABS: % SATURATION 5 % (20-39); IRON 17 ug/dL (50-170); TIBC 373 ug/dL (250-450)
[2020-09-30 08:49] LABS: ANION GAP 9 mmol/L (7-16); BUN 9 mg/dL (7-18); CALCIUM 8.9 mg/dL (8.5-10.1); CHLORIDE 105 mmol/L (98-107); CHOLESTEROL 201 mg/dL (<200); CO2 22 mmol/L (21-32); GLUCOSE 122 mg/dL (74-106); HDL CHOLESTEROL 49 mg/dL (>40); LDL CHOLESTEROL 134 mg/dL (<100); POTASSIUM 4.1 mmol/L (3.5-5.1); SODIUM 136 mmol/L (136-145); TC:HDL 4.1 Ratio (Not establshd); TRIGLYCERIDE 92 mg/dL (<150); VLDL 18 mg/dL (<40)
--- NOTE | 2020-09-30 10:32 | TEE ---
Formerly [facility] [address] [address] TRANSESOPHAGEAL ECHOCARDIOGRAM Name: AL GUILLEN [facility] Room #: 205-P ADM IN M.R.#: [id number] Admission: 09/29/20 Attend Phys: Tripp Toscano MD Discharge: Date of : 76 Report #: [id number] THIS REPORT FOR: cc: Sahara Booker MD, Cora A. MD Santiago, Patrick MD [facility] ~ APPROVED REPORT Study performed: 09/30/2020 09:29:47 EXAM: Transesophageal Echocardiogram Patient Location: In-Patient Room #: 205 Status: routine BSA: 2.05 HR: 127 bpm BP: 96/58 mmHg Rhythm: Tachycardia Other Information Study Quality: Adequate Indications Source of emboli. Rule out PFO. Procedure After obtaining informed consent, patient underwent transesophageal echo in the [employer]. Type of Sedation : Conscious Sedation Sedation was administered by MALINDA Cardoza. Sedation was achieved intravenously with: Versed (9.25) Fentanyl (125) Transesophageal probe was inserted and advanced into esophagus without difficulty by Shaheen Diego MD. Echo enhancement indication: R/O Septal defect. Echo enhancement agent administered: Agitated Saline The FELICIANO was performed without complications. Throughout the procedure, the blood pressure, pulse oximetry, cardiac rhythm, and rate were monitored. The patient tolerated the procedure without adverse effects. Recovery from conscious sedation was uneventful and vital signs were stable. Left Ventricle Formerly [facility] [address] [place] [address] TRANSESOPHAGEAL ECHOCARDIOGRAM Name: AL GUILLEN Room #: 205-P ADM IN M.R.#: [id number] Admission: 09/29/20 Attend Phys: Tripp Toscano MD Discharge: Date of : 76 Report #: [id number] The left ventricle is normal size. There is normal LV segmental wall motion. There is normal left ventricular wall thickness. Left ventricular systolic function is normal. LVEF is 60-65%. Right Ventricle The right ventricle is normal size. The right ventricular systolic function is normal. Atria The left atrium size is normal. No thrombus is visualized in the left atrium or appendage. No shunting noted with contrast bubble injection. The right atrium size is normal. Aortic Valve The aortic valve is normal in structure. No aortic regurgitation is present. There is no aortic valvular stenosis. Mitral Valve The mitral valve is normal in structure. There is no mitral valve regurgitation noted. No evidence of mitral valve stenosis. Tricuspid Valve The tricuspid valve is normal in structure. Trace tricuspid regurgitation. Great Vessels The aortic root is normal in size. The ascending aorta is normal in size. Pericardium There is no pericardial effusion. <Conclusion> Consent was obtained Timeout performed Esophageal probe was advanced without difficulty Left atrial appendage, normal size, no evidence of mass or clots detected Tricuspid aortic valve, normal structure and function Normal mitral valve structure and function Normal left ventricular size, wall thickness ejection fraction of 60% Normal atrial size No evidence of ASD/VSD by color-flow/Doppler study Formerly [facility] [address] [place] [address] TRANSESOPHAGEAL ECHOCARDIOGRAM Name: AL GUILLEN [facility] Room #: 205-P [facility] IN M.R.#: [id number] Admission: 09/29/20 Attend Phys: Tripp Toscano MD Discharge: Date of : 76 Report #: [id number] No pericardial effusion No evidence of calcification in the aorta <ELECTRONICALLY SIGNED> By: Shaheen Diego MD, FACC 09/30/20 1032 31 103 Shaheen Diego MD, FACC /INF
[2020-09-30 11:00] VITALS: BP 121/68
--- NOTE | 2020-09-30 14:01 | NUR ---
Nutrition: pt admitted with left foot wound related to PVD. S/P arteriogram. Possible surgery next week. Pt eating well on regular diet. Stable weights. Protein foods encouraged. Will trial ensure max daily. Cholesterol-201. On a statin. Would consider heart healthy diet restriction. Low nutrition risk.
[2020-09-30 15:30] VITALS: BP 132/86
--- NOTE | 2020-09-30 18:15 | NUR ---
RECEIVED PT'S CARE AROUND 0715; PT. ALERT; ON HEPARIN GTT; DURING AM ASSESSMENT PT. AOX4; NO C/O PAIN; NPO; PER DR. HSU PT. WILL GO FOR PROCEDURE BEFORE NINE; PT. NOTIFIED; CONSENT SIGNED; SR ON THE MONITOR; GONE FOR PROCEDURE AFTER 0800; BACK AFTER 1000; AM MEDICATIONS GIVEN; C/O PAIN; PRN PAIN MEDICATION GIVEN; RE-ASSESSMENT PT. C/O INCREASE PAIN; PRN PAIN MEDICATION GIVEN; RE-ASSESSMENT PT. RESTING WITH EYES CLOSED; ST WITH EXERTION; PT. REQUESTED TO TAKE A SHOWER; PHYSICIAN AND CARDIOLOGY NOTIFIED; OK FOR PT. TO TAKE A SHOWER; TOOK SHOWER DURING THE EVENING; APTT ON THE 40. DURIGN THE EVENING; PROTOCOL FOLLOW; EDUCATED ABOUT FALL PRECAUTIONS; ST. UNDERSTANDING; ASSESSMENT CHARGED; FOLLOWING POC; WILL PASS ON REPORT;
[2020-09-30 19:45] VITALS: BP 105/52
[2020-09-30 22:45] VITALS: BP 105/52
[2020-10-01 03:30] VITALS: BP 126/73
--- NOTE | 2020-10-01 05:43 | NUR ---
PT CARE ASSUMED AT AROUND 1915, PT IS AWAKE, ALERT AND ORIENTED, ASSESSMENTS CHARTED, MEDS GIVEN PER DEC, COMPLAINED OF PAIN ON THE LEFT FOOT, PAIN MEDICINE GIVEN WITH RELIEF, HEPARIN GTT INFUSING PER PROTOCOL, SR ON THE TELE, NO ACUTE DISTRESS NOTED, WILL PASS ON REPORT
[2020-10-01 07:55] VITALS: BP 122/70
[2020-10-01 11:35] VITALS: BP 126/77
[2020-10-01 15:40] VITALS: BP 119/40
--- NOTE | 2020-10-01 17:50 | NUR ---
RECEIVED PT'S CARE AROUND 0715; PT. AOX4; DURING AM ASSESSMENT C/O PAIN; PRN PAIN MEDICATION GIVEN WITH AM MEDICATION; ST. PRN PAIN MEDICATION NOT LASTING 6H; PHYSICIAN NOTIFIED; NO NEW ORDERS; NOTICED L FOOT EDEMA; EDUCATED ABOUT TRYING TO ELEVATED EXTREMITY; PT. ST. NEED TO HANG LLE TO INCREASE CIRCULATION AND DECREASE PAIN; APPT THERAPEUTIC NOT CHANGE ON HEPARIN GTT; REQUESTED ICE PACK; PROVIDED IT; NOTIFIED ABOUT PRN PAIN MEDICATION CHANGED TO Q4H; REQUESTED IT; ASSESSMENT CHARGED; FOLLOWING POC; WILL PASS ON REPORT;
[2020-10-01 20:15] VITALS: BP 113/62
[2020-10-02 04:34] VITALS: BP 113/62
[2020-10-02 05:11] VITALS: BP 102/58
[2020-10-02 06:36] LABS: HEMATOCRIT 28.4 % (37.0-47.0); HEMOGLOBIN 8.9 gm/dL (12.0-15.0); MCH 20.2 pg (26.0-34.0); MCHC 31.4 g/dL (28.0-37.0); MCV 64.3 fL (80.0-100.0); RBC 4.42 mil/uL (4.20-5.00); RDW 20.5 % (10.5-14.5); WBC 7.9 thou/uL (4.0-11.0)
[2020-10-02 07:55] VITALS: BP 130/78
--- NOTE | 2020-10-02 08:06 | NUR ---
ASSUMED PT CARE AT THE CHANGE OF SHIFT, PT IS AWAKE, ALERT AND ORIENTEDX4, SR ON THE MONITOR, ST WITH ACTIVITY, ASESSMENTS CHARTED, PAIN MEDICINE GIVEN WITH RELIEF, DENIES HAVING CONCERN, CONTINUES ON HEPARIN GTT, PASSED ON REPORT
[2020-10-02 11:45] VITALS: BP 138/85
[2020-10-02 15:35] VITALS: BP 118/70
[2020-10-02 20:03] VITALS: BP 125/65
--- NOTE | 2020-10-03 03:54 | NUR ---
ASSUMED CARE OF PATIENT AT 1900. HEPARIN GTT INFUSING. PAIN MANAGED WELL WITH PO MEDS. UP TO BATHROOM AD FABIANO. NO S/S OF DISTRESS.
[2020-10-03 06:03] VITALS: BP 106/63
[2020-10-03 07:55] VITALS: BP 105/67
[2020-10-03 11:50] VITALS: BP 110/72
--- NOTE | 2020-10-03 16:04 | NUR ---
PT ON HEPARIN GTT, RESULTS WERE HIGH-125, HELD PER PROTOCOL AND RESTARTED AND HR LATER DECREASING BY 3 PER PROTOCOL, PT'S LEFT FOOT IS PAINFUL- THE CREASE IN HER LEFT GREAT TOE, BECOMES MORE PAINFUL THAN BEFORE, AYDEE DIAZ WAS IN THERE AND TOLD THE PT, PLEASE "TRY TO HOLD ON UNTIL SURGERY TOMORROW." ICE PACK GIVEN TO PT TO HELP DECREASE PAIN, WILL MONITOR AND OFFER SUPPORT
[2020-10-03 20:45] VITALS: BP 117/71
[2020-10-04] VITALS (42 sets, daily range): BP systolic 100–170; BP diastolic 56–92
--- NOTE | 2020-10-04 01:29 | NUR ---
PT IS ALERT AND ORIENTED X4. LUNGS ARE CLAR. SR. ON THE MONIRO LUNGGGGS ARE CLEAR TO DIMINISISHED. ON HEPARIN RIP A TTHI SITME. ILLIAC EMOBLI DIAGNOSIS. LEFT FOOOT AND GREAT TOES HAS PAIN. WILL CONINTUNEU TO ASSESS AND MONITOR PER SOURAV . WILL CONTINUE TO MONITOR AT THIS TIME.CALL LIGHT WITHIN RE IF NEEDSD ASSISTACNE.
[2020-10-04 09:32] LABS: HEMOGLOBIN 8.9 gm/dL (12.0-15.0); MCH 20.8 pg (26.0-34.0); MCHC 33.1 g/dL (28.0-37.0); RBC 4.28 mil/uL (4.20-5.00); RDW 20.5 % (10.5-14.5)
--- NOTE | 2020-10-04 12:28 | O ---
[facility] [place] [address] OPERATIVE REPORT Name: AL GUILLEN Room #: 248-P ADM IN M.R.#: [id number] Admission: 09/29/20 Attend Phys: Tripp Toscano MD Discharge: Date of : 76 Report #: [id number] THIS REPORT FOR: cc: Shaara Booker MD, Cora A. MD Forman, John M. MD ~ DATE OF SERVICE: 10/04/2020 PREOPERATIVE DIAGNOSIS: Arterial occlusive disease, left lower extremity. POSTOPERATIVE DIAGNOSIS: Arterial occlusive disease, left lower extremity. OPERATION: Left femoral thrombectomy. INDICATIONS: The patient is a 40-year-old known to me from previous left femoral to posterior tibial artery bypass. Unfortunately, this has occluded and the patient has developed thrombus in the left femoral and iliac arteries. Discussion was held with Interventional Radiology regarding the approach and they deferred to me as they were not eager to attempt thrombolytic treatment and I offered thrombectomy as an approach to increase inflow to the left lower extremity. FINDINGS AND TECHNIQUE: After general anesthesia was established, an incision was made in the left groin to expose the left common deep and superficial femoral arteries. The graft was also exposed and controlled. This was a tedious dissection as it was a reoperative groin. 10,000 units of heparin were given. The vessels were occluded and a femoral arteriotomy was made. A small amount of organized thrombus was obtained and the femoral artery and small amount of additional thrombus was obtained from a thrombectomy of the deep femoral and the iliac system. A good backbleeding and antegrade bleeding was obtained. A separate incision was made in the graft and this was filled with thrombus with no lumen. The arteriotomy was closed with interrupted Prolene as was the incision in the graft. Flow was reestablished. Doppler showed that we had good flow. Protamine was not reversed, but hemostasis was ascertained. A 15 King drain was brought through separate stab wound and then the wound was closed in layers. The patient was taken to the recovery area in satisfactory condition having tolerated the procedure well. All counts reported as correct. <ELECTRONICALLY SIGNED> By: Drew Adams MD 10/04/20 1228 1056 1116 Drew Adams MD /nt
--- NOTE | 2020-10-04 18:30 | NUR ---
ASSUMED CARE @ 1200 10/04/20, PT ASSESSMENTS AND VSS COMPLETE PER ICU PRT. PT ARRIVED TO THE UNIT WITH THE ASSIST OF 2 RN'S FROM PACU. PT STARTED ON A CARDENE GTT BUT RN ABLE TO TITRATE OFF BEFORE END OF THIS SHIFT. DURING THE INITAIL ASSESSMENT, RN COULDNT DOPPLER PEDAL OR POSTERIOR TIBIALIS PULSES, JOE INFORMED. JOE HIMSELF TRIES TO DOPPLER THE PT'S PULSES ON THOSE LOCATIONS, THIS WAS UNSUCCESSFUL. DR PARK INFORMED ABOUT THIS, NO ORDERS RECIEVED AT THIS TIME. PAIN MANAGED WITH FENTANYL AND OXYCODONE. DR PARK AND JOE PA @ THE BEDSIDE DURING THIS SHIFT.
[2020-10-05] VITALS (16 sets, daily range): BP systolic 97–119; BP diastolic 50–73
[2020-10-05 05:23] LABS: HEMATOCRIT 26.5 % (37.0-47.0); HEMOGLOBIN 8.6 gm/dL (12.0-15.0); MCH 20.6 pg (26.0-34.0); MCHC 32.3 g/dL (28.0-37.0); MCV 63.7 fL (80.0-100.0); RBC 4.16 mil/uL (4.20-5.00); RDW 20.5 % (10.5-14.5); WBC 14.8 thou/uL (4.0-11.0)
[2020-10-05 05:33] LABS: CALCIUM 8.9 mg/dL (8.5-10.1); CREATININE 0.9 mg/dL (0.6-1.0); POTASSIUM 4.2 mmol/L (3.5-5.1)
--- NOTE | 2020-10-05 06:32 | NUR ---
ASSUMED PT AT 1900. VSS. PT A&0X4. COMPLAINED OF PAIIN IN LEFT FOOT. NO PALPABLE PULSE PRESENT IN LEFT FOOT. DR PARK PREVIOUSLY AWARE OF THIS. FOOT PAIN MANAGED WELL PRN. PT HAD A GOOD RESTFUL NOC. LEFT GROIN DRESSING REMAINS CDI SHEA BOX FLASHING GREEN. PT IS STABLE. NO FURTHER COMPLAINTS OVER NOC, WILL CONTINUE TO MONITOR.
--- NOTE | 2020-10-05 12:00 | NUR ---
Case opened to follow for dc planning needs. Pt is known to cm from multiple admissions since February2020 and a 5N rehab stay. The pt is currently in ICU s/p lt femoral artery thrombectomy yesterday. She is progressing postop and has transfer orders for CCU. The pt is A&0x4 and lives indep in an apt with her 10yr old child. She has two older children and her mother who are supportive and help care for her younger child. She has a rwalker at home from a previous discharge and has used [facility] in March 2020. Her pcp is Dr. Sahara Booker. PT/OT evals are pending today. Will follow along for possible hh referral at ca.
--- NOTE | 2020-10-05 14:52 | NUR ---
ALERT AND ORIENTED, VITALS STABLE. MEDICATED FOR PAIN WITH PRN MEDS. TOLERATING DIET W/O NAUSEA. UP TO THE CHAIR WITH ASSIST FROM P.T. WALKED THE HALLS. LEFT FOOT WARM BUT UNABLE TO DOPPLER ANY PULSE AND MD IS AWARE. A-LINE DC'D THIS MORNING AND JOEL CATH DC'D THIS AFTERNOON. ORDERS RECEIVED TO TRANSFER TO CCU AND IS WAITING FOR A ROOM.
--- NOTE | 2020-10-05 15:04 | NUR ---
FAXED REFERRAL TO [facility] HH SPOKE WITH DENISSE IN INTAKE SHE RECEIVED REFERRAL AND WILL REVIEW. DP TO FOLLOW.
--- NOTE | 2020-10-05 16:12 | NUR ---
VAT TEAM CONSULTED FOR MIDLINE. RIGHT UPPER BASILIC MIDLINE INSERTED, CHARTED. TRIMMED 11CM AND 0EXTERNAL. RELEASED FOR USE.
--- NOTE | 2020-10-05 18:51 | NUR ---
PATIENT TRANSFERRED TO CCU FROM ICU TO ROOM 212, UPON ARRIVAL PATIENT HAD ACCIDENT IN BATHROOM, THIS NURSE SUPPLIED PATIENT WITH PADS AND BRIEFS AND ASKED WHAT SHE CAN BE ASSISTED WITH 3 TIMES. PATIENT CONTINUED TO SAY, "I DONT NEED HELP RIGHT NOW I JUST WANT TO WASH MY CLOTHES OUT RIGHT NOW" THIS NURSE STATED SHE WOULD GIVE HER HER PRIVACY IF SHE DIDNT NEED HELP AND WHEN READY FOR ASSISTANCE TO PULL THE BATHROOM CALL LIGHT. PATIENT PULLED CALL LIGHT AND CHUCK LYNN ENTERED THE PATIENTS ROOM. UPON ENTERING THE PATIENT WAS UPSET. SHE WAS PRETTY FLUSTERED ABOUT THE SITUATION AND THE ACCIDENT ON THE FLOOR. TECH ASSISTED THE PATIENT BACK TO BED. THIS NURSE WENT INTO PATIENTS ROOM AND DISCUSSED THE SITUATION, STATING THAT SHE WAS JUST RESPECTING HER PRIVACY REQUESTED. PATIENT SEEMED CALM OVER CONVERSATION AND ISSUE WAS ADRESSED. DISCUSSED HOW HER PAIN, ADMISINTERED PRN OXYCODONE PER DEC. REPORT GIVEN TO ON COMING SHIFT.
[2020-10-06 04:33] VITALS: BP 107/66
--- NOTE | 2020-10-06 04:34 | NUR ---
SLEPT PART OF SHIFT. UP TO BATHROOM WITH STANDBY ASSIST. PATIENT ON PERIOD AND PERFORMS OWN CARES. PAIN MEDICATION GIVEN PRN FOR LEFT FOOT PAIN. LEFT FOOT REMAINS WARM TO TOUCH. ENCOURAGED TO CALL FOR ANY NOTED CHANGES IN FEELINGS TO LEFT FOOT. WORKING ON GOALS AND PLAN OF CARE FOR NOC. PROGRESSING SLOWLY TOWARDS DISCHARGE GOALS. REMAINS ON HEPARIN PER PROTOCOL. CONTINUE TO ASSES CLOSELY.
[2020-10-06 08:30] VITALS: BP 136/86
[2020-10-06 11:26] VITALS: BP 141/91
--- NOTE | 2020-10-06 13:08 | PATH ---
[facility] [address] [place] [address] PATHOLOGY RPT PROCEDURE Name: AL GUILLEN Room #: 212-P ADM IN M.R.#: [id number] Admission: 09/29/20 Date of : 76 Discharge: Report #: [id number] Path Case #: [id number] [facility] Accession Number: [id number] . 01 Material submitted: . lower limb - THROMBUS. Modifiers: left . 01 Clinical history: . BLOOD CLOT LLE . 02 Diagnosis: Thrombus, thrombectomy: - Fibrin and elements of peripheral blood, consistent with a thrombus. (IUV:eleni; 10/06/2020) QMS 10/06/2020 1012 Local . 02 Electronically signed: . Rebecca Pierson MD, Pathologist NPI- [id number] . 01 Gross description: . The specimen is received in formalin, labeled "Jayche Lacy, thrombus". Received are two segments of pink-espana tissue measuring 0.8 x 0.4 x 0.1 cm in aggregate dimensions. The specimen is filtered and entirely submitted in cassette A1. (CAA; 10/05/2020) QAC/QAC 10/05/2020 1741 Local . 02 Pathologist provided ICD-10: I82.402 . 02 CPT . 285122 Specimen Comment: A courtesy copy of this report has been sent to [phone], [phone] Specimen Comment: [phone], , Specimen Comment: Report sent to ,DR ESTRADA,DR NAIK / DR SCHMIDT Performed at: [address], [place] [id number] MD Adan Montero MD Phone: [phone] Performed at: [address] [id number] MD Rebecca Pierson MD Phone: [phone]
[2020-10-06 15:30] VITALS: BP 116/69
--- NOTE | 2020-10-06 17:28 | NUR ---
ASSUMED CARE AT CHANGE OF SHIFTL. ALERTX4, DENIES SOB, DENIES CHEST PAIN, LEFT LE PAIN MANAGED WITH PRN MEDS. STAND BY ASSIST. HEPARIN DRIP PER PROTOCOL. LAST APTT 34.2 FOLLOWED PHARMACY FLOW SHEET, UNABLE TO ADD TO INTERVENTION. PT RECIEVE 5910 ML BOLOS AND ADDED 2UNITS/K/HR PER PHARMANCY FLOW SHEET. WILL DC TOMORROW ONCE PO MED TO REPLACE HEPARIN IS ORDERED. PERSONAL ITEMS IN REACH. CALLS FOR ASSISTANCE.
[2020-10-06 19:50] VITALS: BP 127/73
[2020-10-07] VITALS (7 sets, daily range): BP systolic 111–132; BP diastolic 63–79
--- NOTE | 2020-10-07 06:50 | NUR ---
PATIENT SLEPT THROUGH SOME OF THE NIGHT. A&OX4. FALL PRECAUTIONS IN PLACE. VSS. ADJUSTED HEPERIN GTTS ORDERED. HEPARIN D/C THIS AM, PO BLOOD THINNER STARTED. MEDICATIONS GIVEN ORDERED. UP WITH ASSIST. PROGRESSING TOWARD D/C. CONTINUE TO ASSES ACCORDING TO POC.
[2020-10-07] MEDS ORDERED: XARELTO20 MG PO (12:15)
[2020-10-07] MEDS ORDERED: LIDOPATCH1 EACH TRANSDERM (12:15)
[2020-10-07] MEDS ORDERED: PEPCID20 MG PO (12:15)
[2020-10-07] MEDS ORDERED: NEURONTIN 300M300 M2 PO (12:15)
[2020-10-07] MEDS ORDERED: PERCOCET 10-321 EACH PO (12:15)
[2020-10-07] MEDS ORDERED: ARTIFICIAL TEA1 EACH OPHTHALMIC (12:15)
[2020-10-07] MEDS ORDERED: MIRALAX17 GM PO (12:15)
--- NOTE | 2020-10-07 13:38 | NUR ---
ASSUMED CARE OF PT AT SHIFT CHANGE. ASSESSMENT CHARTED. MEDS GIVEN PER DEC. PT A&OX4, C/O PAIN TREATED WITH PO MEDS WITH PARTIAL RELIEF. NO DISTRESS NOTED. DISCHARGE ORDERS AND INSTRUCTIONS COMPLTE. IV AND TELE DC'D. PT TAKEN TO ER ENTRANCE VIA WHEELCHAIR BY MANAGER OF PROJECT MANAGEMENT TO WAITING FAMILY CAR.
--- NOTE | 2020-10-07 17:00 | NUR ---
HH orders faxed to [facility] and their oncall nurse was notified of pt dc. No other needs noted.
== END 2020-10-07 13:00 | disposition home health service (06) | DRG 253 ==
LOC: CATH 09:35 → ICU 14:08 → 2N 14:08 → ICU 10-04 08:26 → 2N 10-05 18:04
PROVIDERS: Anesthesiology; Internal Medicine; Internal Medicine Hematology & Oncology; Nuclear Medicine Nuclear Cardiology; Nurse Practitioner; Physician Assistant; ADMIT Internal Medicine; ATTEND Internal Medicine
PROC: B41D1ZZ Fluoroscopy of Aorta and Bilateral Lower Extremity Arteries using Low Osmolar Contrast (ICD-10-PCS; 2020-09-29)
PROC: B4181ZZ Fluoroscopy of Bilateral Renal Arteries using Low Osmolar Contrast (ICD-10-PCS; 2020-09-29)
PROC: B24BZZ4 Ultrasonography of Heart with Aorta, Transesophageal (ICD-10-PCS; principal; 2020-09-30)
PROC: 04CL0ZZ Extirpation of Matter from Left Femoral Artery, Open Approach (ICD-10-PCS; 2020-10-04)
PROC: B54MZZA Ultrasonography of Right Upper Extremity Veins, Guidance (ICD-10-PCS; 2020-10-05)
PROC: 05HB33Z Insertion of Infusion Device into Right Basilic Vein, Percutaneous Approach (ICD-10-PCS; 2020-10-05)
DX: T82.868A Thrombosis due to vascular prosthetic devices, implants and grafts, initial encounter (principal); I74.3 Embolism and thrombosis of arteries of the lower extremities; D68.59 Other primary thrombophilia; I73.9 Peripheral vascular disease, unspecified; Y83.8 Other surgical procedures as the cause of abnormal reaction of the patient, or of later complication, without mention of misadventure at the time of the procedure; E78.00 Pure hypercholesterolemia, unspecified; F32.9 Major depressive disorder, single episode, unspecified; G62.9 Polyneuropathy, unspecified; E66.01 Morbid (severe) obesity due to excess calories; E78.5 Hyperlipidemia, unspecified; D50.9 Iron deficiency anemia, unspecified; N92.0 Excessive and frequent menstruation with regular cycle; F41.1 Generalized anxiety disorder; Z20.828 Contact with and (suspected) exposure to other viral communicable diseases; Z79.82 Long term (current) use of aspirin; Y92.89 Other specified places as the place of occurrence of the external cause; Z79.899 Other long term (current) drug therapy; Z79.01 Long term (current) use of anticoagulants; Z87.891 Personal history of nicotine dependence; Z68.33 Body mass index [BMI] 33.0-33.9, adult
CPT/HCPCS: 10078; 10081; 10797; 27000; 47375; 50010; 50101; 50331; 50455; 51165; 54118; 56524; 56526; 56528; 56668; 56760; 57092; 57093; 57254; 62110; 62900; 70005

== ENCOUNTER 2020-10-09 10:53 | Emergency (ER) | payer OTHER ==
[~2020-10-09] VITALS: Ht 170.2 cm; Wt 95.3 kg
[~2020-10-09 10:53] MED LIST changes: +ARTIFICIAL TEA1 EACH OPHTHALMIC; +LIDOPATCH1 EACH TRANSDERM; +NEURONTIN 300M300 M2 PO; +PEPCID20 MG PO; +XARELTO20 MG PO
[2020-10-09 10:54] VITALS: BP 149/92
[2020-10-09 11:26] LABS: HEMATOCRIT 31.4 % (37.0-47.0); HEMOGLOBIN 10.2 gm/dL (12.0-15.0); MCH 21.6 pg (26.0-34.0); MCHC 32.5 g/dL (28.0-37.0); MCV 66.4 fL (80.0-100.0); PLATELET COUNT 440 thou/uL (150-400); RBC 4.73 mil/uL (4.20-5.00); RDW 24.8 % (10.5-14.5); WBC 8.3 thou/uL (4.0-11.0)
[2020-10-09 11:35] LABS: ANION GAP 7 mmol/L (7-16); BUN 12 mg/dL (7-18); CALCIUM 9.7 mg/dL (8.5-10.1); CHLORIDE 102 mmol/L (98-107); CO2 26 mmol/L (21-32); CREATININE 0.9 mg/dL (0.6-1.0); GLUCOSE 190 mg/dL (74-106); POTASSIUM 4.9 mmol/L (3.5-5.1); SODIUM 135 mmol/L (136-145)
[2020-10-09 11:43] LABS: TROPONIN-I <0.06 ng/mL (<0.06)
[2020-10-09 12:09] LABS: ABSOLUTE NEUTROPHILS 3.6 thou/uL (1.4-8.2); ANISOCYTOSIS 2+; MICROCYTES 2+; PLATELET ESTIMATE NORMAL; POLYCHROMASIA 1+; TARGET CELLS 1+
[2020-10-09] MEDS ORDERED: ERYTHROMYCIN E3.5 G2 OPHTHALMIC (13:16)
--- NOTE | 2020-10-10 07:22 | EKG ---
[facility] [address] [address] ELECTROCARDIOGRAM REPORT Name: AL GUILLEN Room #: DEP Cecilia#: [id number] Admission: 10/09/20 Attend Phys: Discharge: 10/09/20 Date of : 76 Report #: [id number] <ELECTRONICALLY SIGNED> By: Shaheen Diego MD, FACC 10/10/20 0722 06 06 Shaheen Diego MD, FACC /EPI
== END 2020-10-09 12:59 | disposition home or self-care (01) ==
LOC: ER 10:53
PROVIDERS: Nurse Practitioner
DX: R00.2 Palpitations (principal); I10 Essential (primary) hypertension; E78.5 Hyperlipidemia, unspecified; Z79.899 Other long term (current) drug therapy; Z87.891 Personal history of nicotine dependence; Z79.82 Long term (current) use of aspirin

== ENCOUNTER 2020-10-13 17:43 | Emergency (ER) | payer OTHER ==
[~2020-10-13] VITALS: Ht 162.6 cm; Wt 83.9 kg
[~2020-10-13 17:43] MED LIST changes: +ERYTHROMYCIN E3.5 G2 OPHTHALMIC
[2020-10-13 19:49] LABS: HEMATOCRIT 29.6 % (37.0-47.0); HEMOGLOBIN 9.5 gm/dL (12.0-15.0); MCH 21.6 pg (26.0-34.0); MCV 67.4 fL (80.0-100.0); PLATELET COUNT 488 thou/uL (150-400); RBC 4.39 mil/uL (4.20-5.00); RDW 25.1 % (10.5-14.5); WBC 9.6 thou/uL (4.0-11.0)
[2020-10-13 20:05] LABS: APTT 30.6 Seconds (24.5-32.8); INR 1.2; PROTIME 11.9 Seconds (9.3-11.4)
[2020-10-13 20:07] LABS: URIC ACID* 5.6 mg/dL (2.6-6.0)
[2020-10-13 20:16] LABS: CALCIUM 9.2 mg/dL (8.5-10.1); POTASSIUM 4.1 mmol/L (3.5-5.1)
[2020-10-13 20:17] LABS: ALBUMIN 3.4 g/dL (3.4-5.0); TOTAL BILIRUBIN 0.3 mg/dL (0.2-1.0); TOTAL PROTEIN 7.9 g/dL (6.4-8.2)
[2020-10-13] MEDS ORDERED: AUGMENTIN 875-1 EACH PO (21:30)
[2020-10-13] MEDS ORDERED: PERCOCET 10-321 EACH PO (21:40)
[2020-10-13 21:46] LABS: ABSOLUTE NEUTROPHILS 5.5 thou/uL (1.4-8.2); ANISOCYTOSIS 3+; HYPOCHROMASIA 2+; MICROCYTES 2+; PLATELET ESTIMATE INCREASED
[2020-10-13 21:47] LABS: POIKILOCYTOSIS 1+
[2020-10-13 23:06] VITALS: BP 131/78
== END 2020-10-14 00:45 | disposition home or self-care (01) ==
LOC: ER 17:43
PROVIDERS: Emergency Medicine
DX: L03.116 Cellulitis of left lower limb (principal); D50.9 Iron deficiency anemia, unspecified; I73.9 Peripheral vascular disease, unspecified; I10 Essential (primary) hypertension; E78.5 Hyperlipidemia, unspecified; Z87.891 Personal history of nicotine dependence; Z79.82 Long term (current) use of aspirin; Z79.2 Long term (current) use of antibiotics; Z79.899 Other long term (current) drug therapy

== ENCOUNTER 2020-11-02 08:47 | Inpatient (IN) | payer OTHER ==
[~2020-11-02] VITALS: Ht 152.4 cm; Wt 97.1 kg
[2020-11-02 08:52] VITALS: BP 136/96
[2020-11-02 09:19] LABS: ABSOLUTE NEUTROPHILS 3.1 thou/uL (1.4-8.2); BASOPHILS 1.5 % (0.0-2.0); EOSINOPHILS 1.2 % (0.0-3.0); HEMATOCRIT 30.9 % (37.0-47.0); HEMOGLOBIN 10.3 gm/dL (12.0-15.0); LYMPHOCYTES 39.9 % (24.0-44.0); MCH 23.6 pg (26.0-34.0); MCHC 33.3 g/dL (28.0-37.0); MCV 70.9 fL (80.0-100.0); PLATELET COUNT 448 thou/uL (150-400); POLYS 45.4 % (36.0-66.0); RBC 4.36 mil/uL (4.20-5.00); RDW 24.7 % (10.5-14.5); WBC 6.7 thou/uL (4.0-11.0)
[2020-11-02 09:27] LABS: CREATININE 1.2 mg/dL (0.6-1.0)
[2020-11-02 09:30] LABS: APTT 32.1 Seconds (24.5-32.8); INR 1.2; PROTIME 12.7 Seconds (9.3-11.4)
[2020-11-02 09:31] LABS: POTASSIUM 4.6 mmol/L (3.5-5.1)
[2020-11-02 09:33] LABS: ALBUMIN 3.6 g/dL (3.4-5.0); TOTAL BILIRUBIN 0.6 mg/dL (0.2-1.0); TOTAL PROTEIN 7.8 g/dL (6.4-8.2)
--- NOTE | 2020-11-02 11:26 | EKG ---
[address] [address] ELECTROCARDIOGRAM REPORT Name: AL GUILLEN Room #: [facility]#: [id number] Admission: 11/02/20 Attend Phys: Discharge: Date of : 76 Report #: [id number] [facility] ED Test Date: 2020-11-02 Test Time: 09:13:48 Pat Name: AL GUILLEN Department: Room: Gender: F Bag Checker: sara : 1980 Requested By: See Wolfe Order Number: [id number] MD: Shaheen Diego Measurements Intervals Mcgregor Rate: 100 P: 58 OK: 139 QRS: 29 QRSD: 74 T: 37 QT: 360 QTc: 465 Interpretive Statements Sinus tachycardia Compared to ECG 10/09/2020 11:07:05 T-wave abnormality no longer present Electronically Signed On 11-02-2020 11:26:03 TERMINAL OPERATOR by Shaheen Diego [email or web address] <ELECTRONICALLY SIGNED> By: Shaheen Diego MD, [facility] 11/02/20 1126 0913 2 Shaheen Diego MD, FACAlayna /EPI
[2020-11-02 13:41] LABS: ANISOCYTOSIS 1+; HYPOCHROMASIA 1+; MICROCYTES 1+; POIKILOCYTOSIS SLIGHT
[2020-11-02 15:01] VITALS: BP 117/82
--- NOTE | 2020-11-02 15:35 | NUR ---
40-year-old with heavy vaginal bleeding as well as lightheadedness when standing up. The patient is noted to be tachycardic upon arrival with a heart rate in the 120s. She is alert and oriented x4. Hgb is 10.3 Patient has been admitted to hospitalist Dr. Lyon for: vaginal bleeding, acute blood loss anemia, pt on Xarelto left posterior tibial artery occlusion and hx of left femoral to posterior tibial artery bypass surgery. Patient last here and discharged on 10/07 home with [facility]. Notably patient at that time live alone with her 10 year old child and has a mother and 2 older children to assist her as well as having a rolling walker. At present there are no OT or PT orders or ones for COVID. Mother is listed as next of Kin by the name of Michelle Gallegos and phone number of [phone]. CM will follow for discharge needs.
[2020-11-02 16:08] VITALS: BP 109/73
[2020-11-02 17:18] LABS: HEMATOCRIT 27.4 % (37.0-47.0); HEMOGLOBIN 8.9 gm/dL (12.0-15.0)
--- NOTE | 2020-11-02 19:26 | NUR ---
Patient was transfered from the ER at 1630 per cart in stable condition. Assement and careplan completed. Patient was calm and cooperative with assessment. patient stated she have a chronic pain on her left great toe.Pt was placed on case monitor as ordered.See graphics for details.Dinner tray given but pt ate food brought from home.Ivf in progress.No verbal c/o. Will continue to monitor.
[2020-11-02 19:41] VITALS: BP 123/68
[2020-11-03] VITALS (7 sets, daily range): BP systolic 84–127; BP diastolic 47–78
--- NOTE | 2020-11-03 07:41 | NUR ---
PT ADMITTED WITH DUB PAD CHANGED X 1 BUT IT WAS A VERY LARGE PAD AND IT HAD SATURATED ALL THE WAY THROUGH HER CLOTHING AND ONTO PAD ON BED. TAKING HYDROCODONE AND GABAPENTIN FOR PAIN WITH EFFECT PT SLEEPS AFTER. WOUND ON LEFT GREAT TOE FROM VASCULAR FEMPOP BYPASS WOUND CLOSED WITH THICK LOOKING YELLOWISH SCAB. CONTIUE TO MONITOR.
[2020-11-03 08:02] LABS: HEMATOCRIT 21.5 % (37.0-47.0); MCH 22.9 pg (26.0-34.0); MCHC 32.7 g/dL (28.0-37.0); MCV 70.2 fL (80.0-100.0); RBC 3.05 mil/uL (4.20-5.00); RDW 24.2 % (10.5-14.5); WBC 4.1 thou/uL (4.0-11.0)
[2020-11-03 08:16] LABS: CALCIUM 8.8 mg/dL (8.5-10.1); POTASSIUM 4.5 mmol/L (3.5-5.1)
--- NOTE | 2020-11-03 12:23 | NUR ---
Received awake on bed. Due medications given as prescribe, able to swallow meds w/o difficulty. On room air. Vital signs stable. On telemetry; no complains and signs of chest pain, crushing sensation and heaviness. Assisted in ADLs. Falls bundle in place. On heart healthy diet- tolerating well; no nausea, no vomiting and no abdominal pain noted. Continent of bowel and bladder, able to go to the toilet with standby assist. On delmy pad count- pt informed and aware. With NS at 75cc/hr, infusing well at R hand; C/D/I. Pt seen and examined by Dr Lyon this AM, for transfusion of 1 unit packed RBC, pt informed; a/w call from blood bank.
[2020-11-03 16:19] LABS: HEMATOCRIT 25.2 % (37.0-47.0); HEMOGLOBIN 8.3 gm/dL (12.0-15.0)
--- NOTE | 2020-11-04 05:18 | NUR ---
Pt. rested quietly at intervals during the night when checked on during frequent rounds. She was given po pain meds for c/o left foot pain (see emar) with some relief noted. Pt. went through two kotex pads. One with small amount of bleeding and the other with moderate amount of blood. Up to the bathroom with stand by assistance.
[2020-11-04 06:20] LABS: HEMATOCRIT 23.9 % (37.0-47.0); HEMOGLOBIN 7.7 gm/dL (12.0-15.0); MCH 24.1 pg (26.0-34.0); MCHC 32.1 g/dL (28.0-37.0); MCV 75.1 fL (80.0-100.0); RBC 3.18 mil/uL (4.20-5.00); RDW 25.9 % (10.5-14.5); WBC 4.8 thou/uL (4.0-11.0)
[2020-11-04 07:30] VITALS: BP 120/62
[2020-11-04 08:13] VITALS: BP 120/62
[2020-11-04] MEDS ORDERED: PLAVIX 75 MG TA75 MG PO (09:04)
[2020-11-04 11:01] VITALS: BP 120/62
--- NOTE | 2020-11-04 11:18 | NUR ---
Received awake on bed. Due medications given as prescribed, able to swallow meds w/o difficulty. On room air. Vital signs stable. On telemetry; no complains and signs of chest pain, crushing sensation and heaviness. On heart healthy diet- tolerating well, no nausea, no vomiting and no abdominal pain noted. Continent of bowel and bladder, able to go to the toilet with standby assist.
== END 2020-11-04 14:21 | disposition home or self-care (01) | DRG 760 ==
LOC: ER 08:47 → 4W 13:03 → EROBS 13:03 → 4W 16:19
PROVIDERS: Emergency Medicine; ADMIT Hospitalist; ATTEND Hospitalist
PROC: 30233N1 Transfusion of Nonautologous Red Blood Cells into Peripheral Vein, Percutaneous Approach (ICD-10-PCS; principal; 2020-11-03)
DX: D25.9 Leiomyoma of uterus, unspecified (principal); D62 Acute posthemorrhagic anemia; E87.1 Hypo-osmolality and hyponatremia; N93.9 Abnormal uterine and vaginal bleeding, unspecified; I77.1 Stricture of artery; E78.00 Pure hypercholesterolemia, unspecified; F32.9 Major depressive disorder, single episode, unspecified; I10 Essential (primary) hypertension; R00.2 Palpitations; F41.9 Anxiety disorder, unspecified; I73.9 Peripheral vascular disease, unspecified; I49.3 Ventricular premature depolarization; Z87.891 Personal history of nicotine dependence; Z79.899 Other long term (current) drug therapy; Z79.82 Long term (current) use of aspirin; Z28.21 Immunization not carried out because of patient refusal
CPT/HCPCS: 10045

== ENCOUNTER → 2020-11-28 | Outpatient (CLI) | payer OTHER ==
[~2020-11-28] MED LIST changes: +PLAVIX 75 MG TA75 MG PO
== END ==
LOC: SJCVCIMAG 08:24
PROVIDERS: ATTEND Nuclear Medicine Nuclear Cardiology
DX: I70.202 Unspecified atherosclerosis of native arteries of extremities, left leg (principal); I74.5 Embolism and thrombosis of iliac artery; Z95.1 Presence of aortocoronary bypass graft; Z87.891 Personal history of nicotine dependence